=== PATIENT | female | born 1935 | race Caucasian/White ===

== ENCOUNTER → 2018-03-25 | Outpatient (CLI) | payer OTHER ==
[~2018-03-25] MED LIST: ACID REDUCER; ALBU90OI61 INH; ANORO ELLIPTA1 EACH INH; Amlodipine Bes2.5 MG PO; Macrobid 100 M100 MG PO; Omeprazole20 M1 PO; Pravastatin Sod40 MG PO; ZESTORETIC 20-121 EA PO
[2018-03-25 17:31] LABS: Bilirubin, Urine Neg (Neg); Blood, Urine 3+ (Neg); Glucose Qualitative, Urine Neg (Neg); Ketones, Urine Neg (Neg); Leukocyte Esterase, Urine 2+ (Neg); Nitrite, Urine Neg (Neg); Protein, Urine 1+ (Neg); Urobilinogen, Urine NORM (Normal)
[2018-03-25 17:38] LABS: Appearance, Urine Hazy (Clear); Color, Urine Yellow (P-Yellow)
[2018-03-25 17:40] LABS: Bacteria Few /hpf; Red Blood Cells, Urine 0-2 /hpf (0-2); Squamous Epithelial Cells Few /hpf (Few)
== END ==
LOC: LAB SHORT 17:11 → LAB 17:11
PROVIDERS: Internal Medicine Hematology & Oncology
DX: N39.0 Urinary tract infection, site not specified (principal)
CPT/HCPCS: 81001; 87077; 87086; 87186

== ENCOUNTER 2018-03-30 10:37 | Emergency (ER) | payer OTHER ==
[~2018-03-30] VITALS: Ht 162.6 cm; Wt 69.8 kg
[~2018-03-30 10:37] MED LIST changes: -Macrobid 100 M100 MG PO
[2018-03-30 11:18] LABS: BASOPHILS ABSOLUTE AUTO 0.04 K/mm3 (0.00-0.23); BASOPHILS PERCENT AUTO 1 % (0-2); EOSINOPHILS ABSOLUTE AUTO 0.06 K/mm3 (0.00-0.68); EOSINOPHILS PERCENT AUTO 1 % (0-6); Hematocrit 45.8 % (33.0-51.0); Hemoglobin 15.3 g/dL (11.5-16.0); IMMATURE GRAN ABSOLUTE AUTO 0.02 K/mm3 (0.00-0.10); IMMATURE GRAN PERCENT AUTO 0 % (0-1); LYMPHOCYTES ABSOLUTE AUTO 1.37 K/mm3 (0.84-5.20); LYMPHOCYTES PERCENT AUTO 28 % (21-46); MONOCYTES ABSOLUTE AUTO 0.52 K/mm3 (0.16-1.47); MONOCYTES PERCENT AUTO 11 % (4-13); Mean Corpuscular HGB 31.7 pg (26.0-34.0); Mean Corpuscular HGB Conc 33.4 g/dL (31.5-36.5); Mean Corpuscular Volume 95 fL (80-100); Mean Platelet Volume 10.5 fL (9.1-12.4); NEUTROPHILS ABSOLUTE AUTO 2.93 K/mm3 (1.96-9.15); NEUTROPHILS PERCENT AUTO 59 % (41-73); Platelet Count 286 K/mm3 (150-400); RDW Coefficient Variation 11.6 % (11.7-14.2); RDW Standard Deviation 40.7 fL (35.1-46.3); Red Blood Cell Count 4.83 M/mm3 (3.80-5.20); White Blood Cell Count 4.94 K/mm3 (4.00-11.30)
[2018-03-30 11:46] LABS: Alanine Aminotransfer (ALT/SGP 94 U/L (12-78); Albumin, Blood 3.5 g/dL (3.4-5.0); Albumin/Globulin Ratio 0.7 (0.8-1.8); Alk Phos 90 U/L (50-136); Anion Gap 5 mmol/L (6-16); Aspartate Aminotrans (AST/SGOT 56 U/L (12-37); Bilirubin, Total 0.3 mg/dL (0.1-1.0); Blood Urea Nitrogen 13 mg/dL (8-24); Bun/Creatinine Ratio 18.5 (12.0-20.0); CO2, Blood 33 mmol/L (21-32); Calcium, Blood 8.9 mg/dL (8.5-10.1); Chloride, Blood 97 mmol/L (98-108); Globulin, Blood 4.9 g/dL (2.2-4.0); Glomerular Filtration Rate >60 (60-); Glucose, Blood 116 mg/dL (70-99); Potassium, Blood 3.9 mmol/L (3.5-5.5); Sodium, Blood 135 mmol/L (136-145); Total Protein, Blood 8.4 g/dL (6.4-8.2); Troponin I <0.015 ng/mL (0.000-0.040)
[2018-03-30 12:39] LABS: Bilirubin, Urine Neg (Neg); Blood, Urine 5+ (Neg); Glucose Qualitative, Urine Neg (Neg); Ketones, Urine 1+ (Neg); Leukocyte Esterase, Urine 1+ (Neg); Nitrite, Urine Neg (Neg); Protein, Urine 3+ (Neg); Specific Gravity, Urine 1.015 (1.003-1.022); Urobilinogen, Urine NORM (Normal)
[2018-03-30 12:48] LABS: Appearance, Urine Hazy (Clear); Color, Urine Yellow (P-Yellow)
[2018-03-30 12:49] LABS: Bacteria Rare /hpf; Mucus Mod (0-Heavy); Squamous Epithelial Cells Mod /hpf (Few); White Blood Cells, Urine 0-2 /hpf (0-5)
[2018-03-30] MEDS ORDERED: Macrobid 100 M100 MG PO (13:19)
== END 2018-03-30 13:39 | disposition home or self-care (01) ==
LOC: ER 10:37
PROVIDERS: Emergency Medicine; Physician Assistant
DX: J44.0 Chronic obstructive pulmonary disease with (acute) lower respiratory infection (principal); J20.8 Acute bronchitis due to other specified organisms; N39.0 Urinary tract infection, site not specified; I10 Essential (primary) hypertension; Z79.899 Other long term (current) drug therapy; Z87.891 Personal history of nicotine dependence
CPT/HCPCS: 36415; 71046; 80053; 81001; 84484; 85025; 87086; 93005; 93010; 94640; 96361; 96374; 99284-25; J2930; J7030

== ENCOUNTER 2019-02-25 07:23 | Day surgery (SDC) | payer OTHER, SELFPAY ==
[~2019-02-25] VITALS: Ht 162.6 cm; Wt 68.8 kg
[~2019-02-25 07:23] MED LIST changes: +CHOL10002 PO; +MULTI VITAMIN1 EACH PO; +Macrobid 100 M100 MG PO; +PRAV20 PO; +STIOLTO RESPIMAT4 GM INH; +TUMS500 MG PO
[2019-02-25] MEDS ORDERED: Zantac150 MG PO (08:10)
--- NOTE | 2019-02-25 09:45 | NUR ---
02/25/19 0945 Debbie Huang AV CECUM
== END 2019-02-25 10:16 | disposition home or self-care (01) ==
LOC: ORSCSDS 07:23
PROVIDERS: Internal Medicine Gastroenterology
PROC: 0D5H8ZZ Destruction of Cecum, Via Natural or Artificial Opening Endoscopic (ICD-10-PCS; principal; 2019-02-25 09:00)
PROC: 0DB58ZX Excision of Esophagus, Via Natural or Artificial Opening Endoscopic, Diagnostic (ICD-10-PCS; principal; 2019-02-25 09:00)
PROC: 0DB68ZX Excision of Stomach, Via Natural or Artificial Opening Endoscopic, Diagnostic (ICD-10-PCS; principal; 2019-02-25 09:00)
PROC: 0DBK8ZX Excision of Ascending Colon, Via Natural or Artificial Opening Endoscopic, Diagnostic (ICD-10-PCS; principal; 2019-02-25 09:00)
DX: R19.5 Other fecal abnormalities (principal); D12.2 Benign neoplasm of ascending colon; K55.20 Angiodysplasia of colon without hemorrhage; K57.30 Diverticulosis of large intestine without perforation or abscess without bleeding; Z86.010 Personal history of colon polyps; K22.70 Barrett's esophagus without dysplasia; K29.70 Gastritis, unspecified, without bleeding; K44.9 Diaphragmatic hernia without obstruction or gangrene; J44.9 Chronic obstructive pulmonary disease, unspecified; Z99.81 Dependence on supplemental oxygen; Z79.899 Other long term (current) drug therapy
CPT/HCPCS: 87081; 88305; J0330; J0461; J2250; J2405; J2704

== ENCOUNTER 2019-03-04 08:40 | Observation (INO) | payer OTHER ==
[~2019-03-04] VITALS: Ht 162.6 cm; Wt 68.5 kg
[~2019-03-04 08:40] MED LIST changes: +Zantac150 MG PO
[2019-03-04 09:34] LABS: BASOPHILS ABSOLUTE AUTO 0.06 K/mm3 (0.00-0.23); BASOPHILS PERCENT AUTO 1 % (0-2); EOSINOPHILS ABSOLUTE AUTO 0.07 K/mm3 (0.00-0.68); EOSINOPHILS PERCENT AUTO 1 % (0-6); Hematocrit 39.1 % (33.0-51.0); Hemoglobin 13.1 g/dL (11.5-16.0); IMMATURE GRAN ABSOLUTE AUTO 0.02 K/mm3 (0.00-0.10); IMMATURE GRAN PERCENT AUTO 0 % (0-1); LYMPHOCYTES ABSOLUTE AUTO 1.99 K/mm3 (0.84-5.20); LYMPHOCYTES PERCENT AUTO 24 % (21-46); MONOCYTES ABSOLUTE AUTO 0.66 K/mm3 (0.16-1.47); MONOCYTES PERCENT AUTO 8 % (4-13); Mean Corpuscular HGB Conc 33.5 g/dL (31.5-36.5); Mean Corpuscular Volume 95 fL (80-100); Mean Platelet Volume 10.5 fL (9.1-12.4); NEUTROPHILS ABSOLUTE AUTO 5.67 K/mm3 (1.96-9.15); NEUTROPHILS PERCENT AUTO 67 % (41-73); Platelet Count 271 K/mm3 (150-400); RDW Coefficient Variation 12.1 % (11.7-14.2); RDW Standard Deviation 42.7 fL (35.1-46.3); White Blood Cell Count 8.47 K/mm3 (4.00-11.30)
[2019-03-04 09:50] LABS: Alanine Aminotransfer (ALT/SGP 26 U/L (12-78); Albumin, Blood 3.7 g/dL (3.4-5.0); Alk Phos 57 U/L (50-136); Anion Gap 4 mmol/L (6-16); Aspartate Aminotrans (AST/SGOT 23 U/L (12-37); Bilirubin, Total 0.3 mg/dL (0.1-1.0); Blood Urea Nitrogen 17 mg/dL (8-24); Bun/Creatinine Ratio 27.4 (12.0-20.0); CO2, Blood 33 mmol/L (21-32); Calcium, Blood 9.1 mg/dL (8.5-10.1); Chloride, Blood 101 mmol/L (98-108); Creatinine, Blood 0.62 mg/dL (0.40-1.00); Globulin, Blood 3.7 g/dL (2.2-4.0); Glomerular Filtration Rate >60 (60-); Glucose, Blood 99 mg/dL (70-99); Sodium, Blood 138 mmol/L (136-145); Total Protein, Blood 7.4 g/dL (6.4-8.2)
[2019-03-04] MEDS ORDERED: VITAMIN E400 UNI1 PO (11:45)
[2019-03-04] MEDS ORDERED: Aspirin EC81 MG PO (11:45)
[2019-03-04] MEDS ORDERED: ASCO500 PO (11:46)
[2019-03-04] MEDS ORDERED: Vitamin B Comple1 EA PO (11:46)
[2019-03-04] MEDS ORDERED: THERA1 EACH PO (11:46)
[2019-03-04 15:16] LABS: Hematocrit 35.2 % (33.0-51.0); Hemoglobin 11.8 g/dL (11.5-16.0)
[2019-03-04 18:36] LABS: Hematocrit 37.1 % (33.0-51.0); Hemoglobin 12.2 g/dL (11.5-16.0)
[2019-03-05 05:09] LABS: Hemoglobin 12.6 g/dL (11.5-16.0); Mean Corpuscular HGB 30.7 pg (26.0-34.0); Mean Corpuscular HGB Conc 33.2 g/dL (31.5-36.5); Mean Corpuscular Volume 93 fL (80-100); Mean Platelet Volume 10.1 fL (9.1-12.4); Platelet Count 242 K/mm3 (150-400); RDW Coefficient Variation 12.1 % (11.7-14.2); RDW Standard Deviation 41.4 fL (35.1-46.3); White Blood Cell Count 5.06 K/mm3 (4.00-11.30)
== END 2019-03-05 11:51 | disposition home or self-care (01) ==
LOC: ER 08:40 → MEDS 08:41 → ENPENDDIS 03-05 10:59 → MEDS 03-05 11:51
PROVIDERS: Emergency Medicine; Internal Medicine Gastroenterology; ADMIT Internal Medicine
DX: K92.1 Melena (principal); I10 Essential (primary) hypertension; J44.9 Chronic obstructive pulmonary disease, unspecified; I73.9 Peripheral vascular disease, unspecified; Z86.010 Personal history of colon polyps; Z87.891 Personal history of nicotine dependence; Z98.890 Other specified postprocedural states; Z91.048 Other nonmedicinal substance allergy status; Z79.899 Other long term (current) drug therapy; Z79.51 Long term (current) use of inhaled steroids
CPT/HCPCS: 36415; 80053; 85014; 85018; 85025; 85027; 86850; 86900; 86901; 99284; G0378

== ENCOUNTER 2019-03-05 15:10 | Observation (INO) | payer OTHER ==
[~2019-03-05] VITALS: Ht 162.6 cm; Wt 56.8 kg
[~2019-03-05 15:10] MED LIST changes: +ASCO500 PO; +Aspirin EC81 MG PO; +THERA1 EACH PO; +VITAMIN E400 UNI1 PO; +Vitamin B Comple1 EA PO
[2019-03-05 15:49] LABS: BASOPHILS ABSOLUTE AUTO 0.04 K/mm3 (0.00-0.23); BASOPHILS PERCENT AUTO 1 % (0-2); EOSINOPHILS PERCENT AUTO 1 % (0-6); Hematocrit 34.3 % (33.0-51.0); Hemoglobin 11.5 g/dL (11.5-16.0); IMMATURE GRAN ABSOLUTE AUTO 0.02 K/mm3 (0.00-0.10); IMMATURE GRAN PERCENT AUTO 0 % (0-1); LYMPHOCYTES ABSOLUTE AUTO 2.48 K/mm3 (0.84-5.20); LYMPHOCYTES PERCENT AUTO 33 % (21-46); MONOCYTES ABSOLUTE AUTO 0.68 K/mm3 (0.16-1.47); MONOCYTES PERCENT AUTO 9 % (4-13); Mean Corpuscular HGB 31.5 pg (26.0-34.0); Mean Corpuscular HGB Conc 33.5 g/dL (31.5-36.5); Mean Corpuscular Volume 94 fL (80-100); Mean Platelet Volume 10.6 fL (9.1-12.4); NEUTROPHILS ABSOLUTE AUTO 4.27 K/mm3 (1.96-9.15); NEUTROPHILS PERCENT AUTO 56 % (41-73); Platelet Count 260 K/mm3 (150-400); RDW Standard Deviation 41.6 fL (35.1-46.3); Red Blood Cell Count 3.65 M/mm3 (3.80-5.20); White Blood Cell Count 7.59 K/mm3 (4.00-11.30)
[2019-03-05 16:09] LABS: Alanine Aminotransfer (ALT/SGP 24 U/L (12-78); Albumin, Blood 3.7 g/dL (3.4-5.0); Alk Phos 56 U/L (50-136); Anion Gap 4 mmol/L (6-16); Aspartate Aminotrans (AST/SGOT 18 U/L (12-37); Bilirubin, Total 0.3 mg/dL (0.1-1.0); Blood Urea Nitrogen 14 mg/dL (8-24); CO2, Blood 35 mmol/L (21-32); Calcium, Blood 8.5 mg/dL (8.5-10.1); Chloride, Blood 97 mmol/L (98-108); Globulin, Blood 3.6 g/dL (2.2-4.0); Glomerular Filtration Rate >60 (60-); Glucose, Blood 94 mg/dL (70-99); Potassium, Blood 3.8 mmol/L (3.5-5.5); Sodium, Blood 136 mmol/L (136-145); Total Protein, Blood 7.3 g/dL (6.4-8.2)
[2019-03-05 20:22] LABS: Hematocrit 36.8 % (33.0-51.0)
--- NOTE | 2019-03-05 23:00 | NUR ---
FINISHED ERIC, VERY COOPERATIVE
[2019-03-06 05:09] LABS: BASOPHILS ABSOLUTE AUTO 0.03 K/mm3 (0.00-0.23); BASOPHILS PERCENT AUTO 1 % (0-2); EOSINOPHILS ABSOLUTE AUTO 0.08 K/mm3 (0.00-0.68); EOSINOPHILS PERCENT AUTO 1 % (0-6); IMMATURE GRAN ABSOLUTE AUTO 0.02 K/mm3 (0.00-0.10); IMMATURE GRAN PERCENT AUTO 0 % (0-1); LYMPHOCYTES ABSOLUTE AUTO 2.12 K/mm3 (0.84-5.20); LYMPHOCYTES PERCENT AUTO 38 % (21-46); MONOCYTES ABSOLUTE AUTO 0.61 K/mm3 (0.16-1.47); MONOCYTES PERCENT AUTO 11 % (4-13); Mean Corpuscular HGB 31.2 pg (26.0-34.0); Mean Corpuscular HGB Conc 33.3 g/dL (31.5-36.5); Mean Corpuscular Volume 94 fL (80-100); Mean Platelet Volume 10.2 fL (9.1-12.4); NEUTROPHILS PERCENT AUTO 49 % (41-73); Platelet Count 246 K/mm3 (150-400); RDW Coefficient Variation 11.9 % (11.7-14.2); RDW Standard Deviation 40.3 fL (35.1-46.3); Red Blood Cell Count 3.53 M/mm3 (3.80-5.20); White Blood Cell Count 5.66 K/mm3 (4.00-11.30)
[2019-03-06 05:33] LABS: Anion Gap 2 mmol/L (6-16); Blood Urea Nitrogen 9 mg/dL (8-24); Bun/Creatinine Ratio 13.2 (12.0-20.0); CO2, Blood 36 mmol/L (21-32); Calcium, Blood 8.4 mg/dL (8.5-10.1); Chloride, Blood 101 mmol/L (98-108); Creatinine, Blood 0.68 mg/dL (0.40-1.00); Glomerular Filtration Rate >60 (60-); Glucose, Blood 92 mg/dL (70-99); Potassium, Blood 3.4 mmol/L (3.5-5.5); Sodium, Blood 139 mmol/L (136-145)
[2019-03-06 12:46] LABS: Hematocrit 35.9 % (33.0-51.0); Hemoglobin 12.1 g/dL (11.5-16.0)
--- NOTE | 2019-03-06 15:24 | NUR ---
Patient states colon prep results clear. History, Chart, Medications and Allergies reviewed before start of procedure. Lungs clear T/O to Auscultation. Patient confirms NPO status and agrees with scheduled surgery. Pre-Op teaching done. Pt verbalizes understanding.
--- NOTE | 2019-03-06 16:43 | NUR ---
03/06/19 1642 eJff Luther PATIENT DETERMINED TO BE ASA APPROPRIATE FOR PROPOFOL SEDATION PRIOR TO START OF PROCEDURE BY 3-LEAD EKG REVIEWED WITH PHYSICIAN PRIOR TO START OF PROCEDURE.PATIENT CONFIRMS NPO STATUS AND AGREES WITH SCHEDULED PROCEDURE.Patient to ENDO 1History, Chart, Medications and Allergies reviewed before start of procedure.MONITOR INTACT WITH CONTINUOUS PULSE OXIMETRY AND INTERMITTENT BP.O2 VIA N/C INTACT THROUGHOUT SEDATION/PROCEDURE. TALKED WITH DOCTOR. RN COMFORTABLE WITH SEDATING PATIENT WITH PROPOFOL PATIENT MEETS CRITERIA FOR RN SEDATION. DOCTOR IS FINE WITH NURSE SEDTION.
== END 2019-03-06 18:45 | disposition home or self-care (01) ==
LOC: ER 15:10 → MEDS 15:11
PROVIDERS: Internal Medicine Gastroenterology; Physician Assistant; ADMIT Family Medicine
PROC: 0DJD8ZZ Inspection of Lower Intestinal Tract, Via Natural or Artificial Opening Endoscopic (ICD-10-PCS; principal; 2019-03-06 15:30)
DX: K92.1 Melena (principal); K57.32 Diverticulitis of large intestine without perforation or abscess without bleeding; K62.1 Rectal polyp; D50.0 Iron deficiency anemia secondary to blood loss (chronic); E87.6 Hypokalemia; J44.9 Chronic obstructive pulmonary disease, unspecified; I10 Essential (primary) hypertension; I73.9 Peripheral vascular disease, unspecified; E78.5 Hyperlipidemia, unspecified; Z95.828 Presence of other vascular implants and grafts; Z79.899 Other long term (current) drug therapy; Z79.82 Long term (current) use of aspirin; Z98.890 Other specified postprocedural states; Z87.891 Personal history of nicotine dependence
CPT/HCPCS: 36415; 80048; 80053; 85014; 85018; 85025; 86850; 86900; 86901; 93005; 93010; 94640; 94760; 99285-25; G0378; J2704; J7120

== ENCOUNTER → 2019-03-27 | Outpatient (CLI) | payer OTHER ==
[2019-03-27 15:29] LABS: Bilirubin, Urine Neg (Neg); Blood, Urine 5+ (Neg); Glucose Qualitative, Urine Neg (Neg); Ketones, Urine Neg (Neg); Leukocyte Esterase, Urine 3+ (Neg); Nitrite, Urine Neg (Neg); Protein, Urine 3+ (Neg); Specific Gravity, Urine 1.015 (1.003-1.022); Urobilinogen, Urine NORM (Normal)
[2019-03-27 15:43] LABS: Appearance, Urine Cloudy (Clear); Color, Urine Yellow (P-Yellow)
[2019-03-27 15:45] LABS: Bacteria Many /hpf; Red Blood Cells, Urine 50-100 /hpf (0-2); Squamous Epithelial Cells Rare /hpf (Few); White Blood Cells, Urine TNTC /hpf (0-5)
== END | disposition home or self-care (01) ==
LOC: LAB 15:19 → LAB SHORT 15:19
PROVIDERS: Internal Medicine Hematology & Oncology
DX: R53.81 Other malaise (principal); R53.83 Other fatigue
CPT/HCPCS: 81001; 87077; 87086; 87186

== ENCOUNTER → 2019-06-09 | Outpatient (CLI) | payer OTHER ==
[2019-06-09 14:46] LABS: Stool Occult Bld Immuno 1 Negative (NEGATIVE); Stool Occult Bld Immuno 2 Negative (NEGATIVE)
== END ==
LOC: LAB SHORT 12:14 → LAB 12:14 → LAB FUT 02-26 16:05 → EDSTATUS 02-26 16:05
PROVIDERS: Internal Medicine Gastroenterology
DX: R19.5 Other fecal abnormalities (principal)
CPT/HCPCS: 82274

== ENCOUNTER → 2020-01-08 | Outpatient (CLI) | payer OTHER ==
[2020-01-08 11:12] LABS: Source, Urine Clean Catch
[2020-01-08 12:12] LABS: Bilirubin, Urine Neg (Neg); Blood, Urine 5+ (Neg); Glucose Qualitative, Urine Neg (Neg); Ketones, Urine Neg (Neg); Leukocyte Esterase, Urine 3+ (Neg); Nitrite, Urine Pos (Neg); Protein, Urine 3+ (Neg); Urobilinogen, Urine NORM (Normal)
[2020-01-08 12:35] LABS: Appearance, Urine Turbid (Clear); Color, Urine Yellow (P-Yellow)
[2020-01-08 12:36] LABS: Red Blood Cells, Urine TNTC /hpf (0-2); White Blood Cells, Urine TNTC /hpf (0-5)
[2020-01-08 12:37] LABS: Bacteria Many /hpf; Renal Epithelial Few /hpf (0-Rare); Squamous Epithelial Cells Few /hpf (Few)
[2020-01-11 10:16] LABS: Adenovirus F 40/41 Not Detected (NOT DETECT); Astrovirus Not Detected (NOT DETECT); Campylobacter Sp Not Detected (NOT DETECT); Cryptosporidium Not Detected (NOT DETECT); Cyclospora Cayetanensis Not Detected (NOT DETECT); E. Coli O157 Not Detected (NOT DETECT); Entamoeba Histolytica Not Detected (NOT DETECT); Enteroaggregative E. coli-EAEC Not Detected (NOT DETECT); Enteropathogenic E. coli-EPEC Not Detected (NOT DETECT); Enterotoxigenic E. coli-ETEC Not Detected (NOT DETECT); Giardia Lamblia Not Detected (NOT DETECT); Norovirus GI/GII Not Detected (NOT DETECT); Plesiomonas Shigelloides Not Detected (NOT DETECT); Rotavirus A Not Detected (NOT DETECT); Salmonella Sp Not Detected (NOT DETECT); Sapovirus Not Detected (NOT DETECT); Shiga Toxin-prod E. coli-STEC Not Detected (NOT DETECT); Shigella/Enteroin E. coli-EIEC Not Detected (NOT DETECT); Vibrio Cholerae Not Detected (NOT DETECT); Vibrio Sp Not Detected (NOT DETECT); Yersinia Enterocolitica Not Detected (NOT DETECT)
== END ==
LOC: LAB SHORT 11:10 → LAB 11:10
PROVIDERS: Internal Medicine Hematology & Oncology
DX: N39.0 Urinary tract infection, site not specified (principal); R19.7 Diarrhea, unspecified; K57.30 Diverticulosis of large intestine without perforation or abscess without bleeding; R19.5 Other fecal abnormalities
CPT/HCPCS: 0097U; 81001; 87077; 87086; 87186

== ENCOUNTER → 2020-08-26 | Outpatient (CLI) | payer OTHER | END | disposition home or self-care (01) | LOC: LAB SHORT 08:30 → LAB 08:30 | DX: R30.0 Dysuria (principal) | CPT/HCPCS: 87077; 87086; 87186 ==

== ENCOUNTER → 2021-02-23 | Outpatient (CLI) | payer OTHER | LOC: LAB SHORT 10:15 | DX: R30.0 Dysuria (principal) | CPT/HCPCS: 87086 ==

== ENCOUNTER → 2021-07-18 | Outpatient (CLI) | payer OTHER | LOC: LAB SHORT 13:03 | DX: N39.0 Urinary tract infection, site not specified (principal) | CPT/HCPCS: 87086 ==

== ENCOUNTER → 2021-08-10 | Outpatient (CLI) | payer OTHER | END | disposition home or self-care (01) | LOC: LAB SHORT 17:07 → LAB FUT 08-10 14:40 | DX: R35.0 Frequency of micturition (principal) | CPT/HCPCS: 87086 ==

== ENCOUNTER → 2022-03-30 | Outpatient (CLI) | payer OTHER ==
[~2022-03-30] MED LIST changes: +CLOPIDOGREL300 M1
== END | disposition home or self-care (01) ==
LOC: LAB SHORT 17:36 → LAB 17:36
DX: N02.0 Recurrent and persistent hematuria with minor glomerular abnormality (principal); N39.0 Urinary tract infection, site not specified
CPT/HCPCS: 87077; 87086; 87186

== ENCOUNTER 2022-09-06 00:09 | Inpatient (IN) | payer OTHER ==
[~2022-09-06] VITALS: Ht 162.6 cm; Wt 67.1 kg
[2022-09-06] MEDS ORDERED: LOSARTAN-HCTZ1 EAC6 PO (00:33)
[2022-09-06] MEDS ORDERED: Ventolin5 MG/1 ML INH (00:33)
[2022-09-06] MEDS ORDERED: ASPI81CH PO (00:34)
[2022-09-06] MEDS ORDERED: PRED20 PO (00:34)
[2022-09-06 00:50] LABS: BASOPHILS ABSOLUTE AUTO 0.04 K/mm3 (0.00-0.23); BASOPHILS PERCENT AUTO 1 % (0-2); EOSINOPHILS ABSOLUTE AUTO 0.14 K/mm3 (0.00-0.68); EOSINOPHILS PERCENT AUTO 2 % (0-6); Hematocrit 40.6 % (33.0-51.0); Hemoglobin 13.3 g/dL (11.5-16.0); IMMATURE GRAN ABSOLUTE AUTO 0.03 K/mm3 (0.00-0.10); IMMATURE GRAN PERCENT AUTO 0 % (0-1); LYMPHOCYTES PERCENT AUTO 27 % (21-46); MONOCYTES ABSOLUTE AUTO 0.69 K/mm3 (0.16-1.47); MONOCYTES PERCENT AUTO 8 % (4-13); Mean Corpuscular HGB 30.9 pg (26.0-34.0); Mean Corpuscular HGB Conc 32.8 g/dL (31.5-36.5); Mean Corpuscular Volume 94 fL (80-100); Mean Platelet Volume 11.1 fL (9.1-12.4); NEUTROPHILS ABSOLUTE AUTO 5.51 K/mm3 (1.96-9.15); NEUTROPHILS PERCENT AUTO 63 % (41-73); Platelet Count 179 K/mm3 (150-400); RDW Coefficient Variation 12.6 % (11.7-14.2); White Blood Cell Count 8.81 K/mm3 (4.00-11.30)
[2022-09-06 01:02] LABS: Albumin, Blood 3.6 g/dL (3.4-5.0); Bilirubin, Total 0.3 mg/dL (0.1-1.0); Bun/Creatinine Ratio 15.7 (12.0-20.0); Calcium, Blood 9.1 mg/dL (8.5-10.1); Creatinine, Blood 0.64 mg/dL (0.40-1.00); Globulin, Blood 3.5 g/dL (2.2-4.0); Potassium, Blood 3.5 mmol/L (3.5-5.5); Total Protein, Blood 7.1 g/dL (6.4-8.2)
[2022-09-06 02:47] LABS: Influenza A, PCR NEGATIVE (NEGATIVE); Influenza B, PCR NEGATIVE (NEGATIVE); Resp Syncytial Virus, PCR NEGATIVE (NEGATIVE); SARS-Cov-2 (COVID-19) PCR, MMC NEGATIVE (NEGATIVE)
[2022-09-06 03:31] LABS: Anti-Xa UFH, PHA Monitoring <0.10 IU/mL; International Normalized Ratio 1.04; Prothrombin Time Results 10.9 Sec (9.7-11.5)
[2022-09-06 03:32] LABS: CHOL/HDL RATIO 1.9; Cholesterol 115 mg/dL (50-200); HDL Cholesterol 60 mg/dL (>39); LDL/HDL RATIO 0.7; Low Density Lipoprotein Chol 42 mg/dL (0-110); Triglycerides 67 mg/dL (30-160); Very Low Density Lipoprot Chol 13 mg/dL (6-32)
--- NOTE | 2022-09-06 05:34 | NUR ---
ARRIVAL TO PCU6/SHIFT SUMMARY PT ARRIVED TO PCU6 AT APPROXIMATELY 0330. PT STOOD AND TRANSFERED FROM [facility] TO HOSPITAL BED WITH SBA. PT A&Ox4, COMMUNICATES NEEDS APPROPRIATELY, ORIENTED PT TO ROOM/UNIT AND CALL LIGHT. INSTUCTED PT TO CALL FOR ASSISTANCE BEFORE GETTING UP. BP ELEVATED WITH SBP 150's, AFIB RVR 110-140's UP TO 160's WITH ACTIVITY. PT DENIES CP/PRESSURE/PALPITATIONS. SPOKE WITH DR. MALDONADO, ORDERS GIVEN TO ADMINISTER ANOTHER 15mg CARDIZEM IV PUSH. AFTER ADMINISTERING THE 15mg CARDIZEM IV PUSH, SBP NOW 120's, AFIB 70-90's. D/T PT's BP AND HR RESPONDING TO CARDIZEM, DR. MALDONADO GAVE INSTRUCTIONS TO HOLD 0500 DOSE OF COZAAR. PT ARRIVED ON BASELINE 2L OF O2 VIA NC, SpO2 98-100%. TITRATED PT TO 1L O2 VIA NC, SpO2> 92%. PT REPORTS MILD SOB AT REST, MOD SOB WITH ACTIVITY, PT's LUNG SOUNDS ARE TIGHT THROUGHOUT, REQUESTED BREATHING TREATMENT FROM RT. PT HAS BASELINE TREMOR. EQUAL MOVEMENT OF ALL EXTREMITIES. HEPARIN gtt AT 15. PT SBA TO BATHROOM, CONTINENT OF URINE, NO BM THIS SHIFT. PT RESTING COMFORTABLY. ON CONTINUOUS CARDIAC AND SpO2 MONITORING. WILL REPORT TO ONCOMING RN.
[2022-09-06 14:47] LABS: Potassium, Blood 3.4 mmol/L (3.5-5.5)
--- NOTE | 2022-09-06 17:14 | NUR ---
SHIFT SUMMARY PT A/OX4 AND COOPERATIVE OF CARE. PT HR REMAINED A-FIB AT 90-110'S WHILE AT REST. HR TACHS UP TO 130-140'S WITH EXERTION, HR RETURNS TO 90-110'S ONCE AT REST IN BED FAIRLY QUICKLY. PT REPORTS SOB WHEN UP IN ROOM, SATS STABLE IN THE 90'S. OTHER VSS THROUGHOUT SHIFT. PT REMAINED ON 1-2L NC THROUGHOUT SHIFT. NO REPORT OF CHEST PAIN/PRESSURE THROUGHOUT SHIFT. PT CALLING APPROPIATELY TO HAVE STAFF ASSIST WITH LINES AND CORDS WHEN AMBULATING TO THE BATHROOM. FAMILY MEMBER AT BEDSIDE AND UPDATED. PT ANXIOUS OF HR CONSTANTLY ASKING WHAT HER HR IS IF MONITOR ALARMS. BED IN LOWEST POSITION. CALL LIGHT WITHIN REACH.
--- NOTE | 2022-09-06 19:27 | NUR ---
NOTIFIED PHYSICIAN NOTIFIED PHYSICIAN OF HR 130-160's. INSTRUCTIONS GIVEN TO ADMINISTER 2100 METOPROLOL NOW.
--- NOTE | 2022-09-07 06:02 | NUR ---
SHIFT SUMMARY SEE PREVIOUS NOTE. PT A&Ox4, CALLS AND COMMUNICATES NEEDS APPROPRIATELY. BP STABLE, AFIB 90-110's UP TO 130's WITH ACTIVITY. PT DENIES CP/PRESSURE/PALPITATIONS. SpO2> 92% 1L AT REST, 2L WITH ACTIVIY. AT BASELINE PT WEARS 2L O2 VIA NC CONTINUOUSLY. PT REPORTS MILD SOB AT REST, MOD SOB WITH ACTIVITY. HEPARIN gtt @ 13. PT SBA TO BATHROOM, CONTINENT OF URINE, NO BM THIS SHIFT. ON CONTINUOUS CARDIAC AND SpO2 MONITORING. WILL REPORT TO ONCOMING RN.
--- NOTE | 2022-09-07 07:24 | NUR ---
Up to BSC to void; heart rate up to 121-147 with some mild ShOB and spo2 85-89% while on 2 l/min Oxygen during the activity. Minimal assist back to bed.
--- NOTE | 2022-09-07 07:32 | NUR ---
Pt back to bed, states she feels better than she did when she first got up. Recovery of spo2 to 94%, still on 2 l/min and heart rate (atrial fibrillation, as before) 109-120 bpm at this time. Pt appears calm, not distressed, lying in bed with HOB elevated 45 degrees.
[2022-09-07 08:15] LABS: BASOPHILS ABSOLUTE AUTO 0.04 K/mm3 (0.00-0.23); BASOPHILS PERCENT AUTO 1 % (0-2); EOSINOPHILS ABSOLUTE AUTO 0.16 K/mm3 (0.00-0.68); EOSINOPHILS PERCENT AUTO 2 % (0-6); Hematocrit 40.4 % (33.0-51.0); IMMATURE GRAN ABSOLUTE AUTO 0.02 K/mm3 (0.00-0.10); IMMATURE GRAN PERCENT AUTO 0 % (0-1); LYMPHOCYTES ABSOLUTE AUTO 1.91 K/mm3 (0.84-5.20); LYMPHOCYTES PERCENT AUTO 29 % (21-46); MONOCYTES ABSOLUTE AUTO 0.49 K/mm3 (0.16-1.47); MONOCYTES PERCENT AUTO 7 % (4-13); Mean Corpuscular HGB 30.8 pg (26.0-34.0); Mean Corpuscular HGB Conc 32.2 g/dL (31.5-36.5); Mean Corpuscular Volume 96 fL (80-100); Mean Platelet Volume 10.9 fL (9.1-12.4); NEUTROPHILS ABSOLUTE AUTO 4.09 K/mm3 (1.96-9.15); NEUTROPHILS PERCENT AUTO 61 % (41-73); Platelet Count 174 K/mm3 (150-400); RDW Coefficient Variation 12.9 % (11.7-14.2); RDW Standard Deviation 45.1 fL (35.1-46.3); Red Blood Cell Count 4.22 M/mm3 (3.80-5.20); White Blood Cell Count 6.71 K/mm3 (4.00-11.30)
[2022-09-07 08:31] LABS: Albumin, Blood 3.2 g/dL (3.4-5.0); Anion Gap 4 mmol/L (6-16); Blood Urea Nitrogen 9 mg/dL (8-24); Bun/Creatinine Ratio 14.6 (12.0-20.0); CO2, Blood 36 mmol/L (21-32); Calcium, Blood 8.8 mg/dL (8.5-10.1); Chloride, Blood 101 mmol/L (98-108); Creatinine, Blood 0.62 mg/dL (0.40-1.00); Glomerular Filtration Rate 87 (60-); Glucose, Blood 100 mg/dL (70-99); Phosphorus, Blood 3.3 mg/dL (2.5-4.9); Potassium, Blood 3.6 mmol/L (3.5-5.5); Sodium, Blood 141 mmol/L (136-145)
--- NOTE | 2022-09-07 09:12 | NUR ---
Order noted from pharmacy to continue heparin gtt at current rate. Pt given scheduled morning oral medications.
--- NOTE | 2022-09-07 11:41 | NUR ---
Pt is lying in bed, slight dyspnea noted. STates her breathing is better, but still not "where it needs to be". Called maintainence to adress TV malfunction. Nurse call light is working properly.
--- NOTE | 2022-09-07 14:39 | NUR ---
Continuing heparin gtt at current rate per pharmacy.
--- NOTE | 2022-09-07 15:38 | NUR ---
Pt sitting up in bed,
--- NOTE | 2022-09-07 18:22 | NUR ---
Pt has had no complaints of pain/discomfort today while at rest. She did have dyspnea with activity of getting up to the bedside commode, at the same time that her heart rate was increased to 130-140s. This resolved with rest after the activity.
--- NOTE | 2022-09-08 03:10 | NUR ---
HEART RATE INCREASED TO 150s WHEN GETTING UP TO BEDSIDE COMMODE.
--- NOTE | 2022-09-08 05:26 | NUR ---
AFIB/FLUTTER WITH RATES MOSTLY IN THE 90s - 110s AT REST, INCREASING TO THE 130s-150s WITH ACTIVITY. PATIENT DENIES PALPITATIONS OR FEELING HEART RACING BUT DOES ENDORSE INCREASED SHORTNESS OF BREATH WITH ELEVATED HEART RATE. OXYGEN SATURATION LEVEL DROPS TO LOW TO MID 80 PERCENTILE RANGE ON 2 LPM WITH ACTIVITY. INCREASED TO 4 LPM WITH ACTIVITY FOR ADDITIONAL SUPPORT.
--- NOTE | 2022-09-08 09:30 | NUR ---
ASSUMPTION OF CARE: PATIENT IS INFUSING HEPARIN, IS ALERT AND ORIENTED, PATIENT IS ABLE TO MAKE NEEDS KNOWN, VERY COOPERATIVE WITH CARE. ASK QUESTIONS IN REGARDS TO CARE, SHOWS ONLY A MINIMAL UNDERSTANDING OF CONDITION AT THIS TIME. BLOOD PRESSURE IS LOWER THAN PATIENT NORM, HOWEVER, HR HAS BEEN SLIGHLTY HIGHER, WILL CHECK TREND AFTER MORNING MEDICATIONS. PATIENT IS VISIBLY SOB WITH EXERTION, RECOVERS QUICKLY AND SUBCOUNSCIOUSLY DOES PURSED LIP BREATHING EDUCATION ON THIS GIVEN. WILL CONTINUE TO MONITOR UNTIL SHIFT CHANGE.
[2022-09-08] MEDS ORDERED: FAMO20 PO (18:35)
--- NOTE | 2022-09-08 18:59 | NUR ---
NO CHANGES FROM ASSUMPTION OF CARE. INCREASED DOSE OF METOPROLOL XL AT 1600. WILL FOLLOW UP WITH CARDIOLOGY IN THE AM. PATIENT HAS BEEN COOPERATIVE WITH CARE. USES CALL LIGHT APPROPRIATELY. NO CHEST PAIN. INCREASED SOB WITH EXERTION TO 4L TYPICALY ON 2L AND HAS TOLERATED 2L WITH EXERTION SPO2 >88% WARD CONTINUE TO MONITOR UNTIL SHIFT CHANGE.
--- NOTE | 2022-09-09 05:41 | NUR ---
NO ACUTE EVENTS OVERNIGHT LAST NIGHT. ATRIAL FIBRILLATION PERSISTS WITH RATES IN THE 90s-110s PRIMARILY, WITH OCCASIONAL RATES IN THE 120S-130S WITH ACTIVITY. MS. ZAVALA REPORTS STILL FEELING SHORT OF BREATH WITH ACTIVITY AND RAISE IN HEART RATE. SHE IS GETTING UP TO THE BEDSIDE COMMODE, BUT ATTEMPT TO AMBULATE TO THE BATHROOM CAUSED TOO GREAT OF AN INCREASE IN HER WORK OF BREATHING TO CONTINUE.
--- NOTE | 2022-09-09 10:13 | NUR ---
ASSUMPTION OF CARE: NEURO: PATIENT A/O X 4. ABLE TO MAKE NEEDS KNOWN. COOPERATIVE WITH CARE. PROVIDED EXTENSIVE EDUCATION. WILL CONTINUE TO REINFORCE. CARDIAC: DENIES CHEST PAIN PRESSURE OR INCREASED SOB AT REST FROM BASELINE. PATIENT IS INFUSING HEPARIN AND WILL BE SWITCHED TO ORAL ANTICOAG. PER CARDIOLOGY. PULM: DIM THROUGHOUT, PRN AND SCHEUDLED BREATHING TX WITH IMPROVMENT HR DECREASES. SPO2 92% WITH 2-3L VIA NC. GI/: LARGE HARD BM YESTERDAY. ABLE TO VOID WELL. BRAULIO HAVE BEEN USING BSC DUE TO HR. CONCERNS.: NO CONCERNS FROM THIS RN WILL CONTINUE TO MONITOR UNTIL SHIFT CHANGE. AND TREND HR. TELE IN PLACE.
[2022-09-09] MEDS ORDERED: METO100ER PO (18:43)
[2022-09-09] MEDS ORDERED: LOSA25 PO (18:43)
[2022-09-09] MEDS ORDERED: ELIQUIS5 M2 PO (18:43)
--- NOTE | 2022-09-09 18:57 | NUR ---
DISCHARGE SUMMARY: PATIENT IS IN NO SIGN OF ACUTE DISTRESS. PATIENT ON LESS THAN HOME O2. AND TOLERATING SPO2 >88%. PATIENT HAS BEEN CHEST PAIN FREE. IV'S REMOVED, AND TELE OFF OF PATIENT. DISCHARGE INSTRUCTIONS, EDUCATION AND MEDICATIONS FAXED. PATIENT HAD CLEAR UNDERSTANDING. VAST AMOUNT OF EDUCATION WAS GIVEN TO PATIENT FRIEND AND SON. NONE HAD FURTHER QUESTIONS OR CONCERNS. PATIENT IS IN AGREEANCE WITH PLAN WITH NO HESTITATION OR CONCERN. THIS PERFUMER HAS NO CONCERNS. PATIENT WAS WHEELED OUT BY [facility] TO FRIENDS CAR TO BE SENT HOME.
== END 2022-09-09 18:06 | disposition home or self-care (01) | DRG 309 ==
LOC: ER 00:09 → PCU 03:09
PROVIDERS: Emergency Medicine; Family Medicine; Internal Medicine; ADMIT Internal Medicine
DX: I48.91 Unspecified atrial fibrillation (principal); I50.22 Chronic systolic (congestive) heart failure; J96.11 Chronic respiratory failure with hypoxia; I11.0 Hypertensive heart disease with heart failure; J44.9 Chronic obstructive pulmonary disease, unspecified; I42.9 Cardiomyopathy, unspecified; I73.9 Peripheral vascular disease, unspecified; E87.70 Fluid overload, unspecified; R91.8 Other nonspecific abnormal finding of lung field; I35.1 Nonrheumatic aortic (valve) insufficiency; I27.20 Pulmonary hypertension, unspecified; Z20.822 Contact with and (suspected) exposure to COVID-19; Z98.890 Other specified postprocedural states; Z87.891 Personal history of nicotine dependence; Z88.2 Allergy status to sulfonamides; Z79.51 Long term (current) use of inhaled steroids; Z79.82 Long term (current) use of aspirin; Z79.899 Other long term (current) drug therapy; Z79.52 Long term (current) use of systemic steroids; Z95.1 Presence of aortocoronary bypass graft
CPT/HCPCS: 0241U; 36415; 71046; 80053; 80061; 80069; 83036; 83735; 83880; 84132; 84145; 84443; 84484; 85025; 85520; 85610; 85730; 93005; 93010; 93306; 94640; 94664; 94760; 94761; 94762; 96374; 99285-25; A9270; J1644; J3480; J7050

== ENCOUNTER 2023-02-28 07:55 | Inpatient (IN) | payer OTHER ==
[~2023-02-28] VITALS: Ht 162.6 cm; Wt 63.1 kg
[~2023-02-28 07:55] MED LIST changes: +ASPI81CH PO; +ELIQUIS5 M2 PO; +FAMO20 PO; +LOSA25 PO; +LOSARTAN-HCTZ1 EAC6 PO; +METO100ER PO; +PRED20 PO; +Ventolin5 MG/1 ML INH
[2023-02-28 08:25] LABS: BASOPHILS ABSOLUTE AUTO 0.06 K/mm3 (0.00-0.23); BASOPHILS PERCENT AUTO 1 % (0-2); EOSINOPHILS PERCENT AUTO 1 % (0-6); Hematocrit 40.7 % (33.0-51.0); Hemoglobin 12.2 g/dL (11.5-16.0); IMMATURE GRAN ABSOLUTE AUTO 0.03 K/mm3 (0.00-0.10); IMMATURE GRAN PERCENT AUTO 0 % (0-1); LYMPHOCYTES PERCENT AUTO 17 % (21-46); MONOCYTES ABSOLUTE AUTO 0.62 K/mm3 (0.16-1.47); MONOCYTES PERCENT AUTO 8 % (4-13); Mean Corpuscular HGB 27.9 pg (26.0-34.0); Mean Corpuscular Volume 93 fL (80-100); Mean Platelet Volume 10.8 fL (9.1-12.4); NEUTROPHILS ABSOLUTE AUTO 5.92 K/mm3 (1.96-9.15); NEUTROPHILS PERCENT AUTO 73 % (41-73); Platelet Count 252 K/mm3 (150-400); RDW Coefficient Variation 13.9 % (11.7-14.2); RDW Standard Deviation 47.5 fL (35.1-46.3); Red Blood Cell Count 4.38 M/mm3 (3.80-5.20); White Blood Cell Count 8.13 K/mm3 (4.00-11.30)
[2023-02-28 08:46] LABS: Albumin, Blood 2.9 g/dL (3.4-5.0); Albumin/Globulin Ratio 0.6 (0.8-1.8); Bilirubin, Total 0.4 mg/dL (0.1-1.0); Bun/Creatinine Ratio 32.9 (12.0-20.0); Calcium, Blood 8.9 mg/dL (8.5-10.1); Creatinine, Blood 0.43 mg/dL (0.40-1.00); Globulin, Blood 4.8 g/dL (2.2-4.0); Potassium, Blood 4.5 mmol/L (3.5-5.5); Total Protein, Blood 7.7 g/dL (6.4-8.2)
[2023-02-28 09:20] LABS: Influenza A, PCR NEGATIVE (NEGATIVE); Influenza B, PCR NEGATIVE (NEGATIVE); Resp Syncytial Virus, PCR NEGATIVE (NEGATIVE); SARS-Cov-2 (COVID-19) PCR, MMC NEGATIVE (NEGATIVE)
[2023-02-28 11:19] LABS: Digoxin (Lanoxin) 0.09 ug/mL (0.80-2.00)
[2023-02-28 12:57] VITALS: BP 148/110
[2023-02-28] MEDS ORDERED: ROSUVASTATIN CA20 MG PO (13:05)
[2023-02-28] MEDS ORDERED: LOSARTAN POTASS25 M2 PO (13:05)
--- NOTE | 2023-02-28 14:57 | NUR ---
ADMISSION TO PCU: PATIENT ALERT AND ORIENTED. PERRLA. SLIGHTLY YUHAAVIATAM. DENIES NUMBNESS/TINGLING. STRONG BILATERAL MESMERIST. FOLLOWING COMMANDS. ON 4L NASAL CANNULA SATING MID-HIGH 90'S. VERY DIMINISHED LUNG SOUNDS. AT TIMES USING ACCESSORY MUSCLES AND PURSED LIP BREATHING. BIPAP ON STANBY AT BEDSIDE. PATIENT STATES SHE USES 2.5L NASAL CANNULA PRN AT HOME. OCCASIONAL NONPRODUCTIVE COUGH. EVEN AND UNLABORDED BREATHING AT THIS TIME. TELE SHOWING AFIB RVR WITH HR 120-150'S ON ADMISSION. DR. RAZO CALLED AND HOME PO METOPROLOL STARTED. PT HR TRENDING DOWN 110-130'S AT THIS TIME. BP STABLE. DENIES CHEST PAIN/PRESSURE/PALPITATIONS. NO EDEMA NOTED. PPP. PO ANTICOAGS ORDERED. DENIES ABDOMINAL PAIN/NAUSEA. CLEAR LIQUID DIET UPON ADMIT, NO SWALLOWING ISSUES NOTED AND WORK OF BREATHING IMPROVED. DIET ADVANCED TO REGULAR. PATIENT EATING WNL. PUREWICK IN PLACE. ATTENDS CLEAN AND DRY. BOWEL TONES PRESENT. SON AT BEDSIDE. PALLIATIVE CARE IN TO HELP FILL OUT POLST. ORIENTED TO ROOM AND UNIT. EDUCATED ON FIRE RISK AND IGNITION SOURCES. PATIENT DENIES HAVING ANY SOURCE OF IGNITION.
[2023-02-28 15:23] VITALS: BP 127/75
--- NOTE | 2023-02-28 15:44 | NUR ---
Received call from Pt's Primary RN Kimberley reporting Pt and son would like assistance with completing a POLST. Pt resting in bed and is A&OX4. Pt denies pain, dyspnea, and anxiety at this time. Pt's son Tristan is at bedside. Discussed options to choose from POLST and educated on options. Assisted Pt with completing POLST. Pt's wishes on POLST is DNR and Limited Treatment. Engaged in conversation regarding advanced care planning. Educated on disease process including trajectory and the importance of planning for the future. Discussed the importance of routine conversations with PCP. Offered therapeutic listening and answered questions. Pt and son express appreciation and report no other concerns at this time. Dr Arthur signs POLST. Delivered copy of POLST to medical records via hospital tube system. Original POLST given to Pt's son and instructed to hang on refridgerator at home. Palliative Care will remain available
--- NOTE | 2023-02-28 18:48 | NUR ---
SHIFT SUMMARY: NO ACUTE CHANGES, SEE PREVIOUS NOTES. REMAINS ON 4L NASAL CANNULA SATING MID 90'S. BIPAP ON STANDBY. AFIB WITH HR IMPROVING 100-110'S. BP STABLE. EATING AND VOIDING WNL. IV LASIX GIVEN WITH ADEQUATE URINE OUTPUT. SHIRIN HANSON AT BEDSIDE. ONE BOWEL MOVEMENT THIS SHIFT. CALL LIGHT IN REACH.
[2023-02-28 19:53] VITALS: BP 124/65
[2023-02-28 23:22] VITALS: BP 143/71
--- NOTE | 2023-03-01 01:21 | NUR ---
SAFETY & EDUCATION PT & FAMILY EDUCATED RE: IGINITION SOURCES AND RISK OF INJURY WHILE OXYGEN IS IN USE. PT DENIES SMOKING & PT AND FAMILY VERBALIZE UNDERSTANDING.
[2023-03-01 03:30] VITALS: BP 152/79
--- NOTE | 2023-03-01 04:51 | NUR ---
SHIFT SUMMARY SEE PREVIOUS NOTE. PT A&Ox4, CALLS AND COMMUNICATES NEEDS APPRORIATELY. BP STABLE, AFIB 80-120's, DENIES CP/PRESSURE. SpO2> 92% 3-4L VIA NC, DENIES SOB. PT REPORTS INCONTINENCE OF URINE AT TIMES, PUREWICK IN PLACE. NO BM THIS SHIFT. NO OTHER EVENTS, WILL REPORT TO ONCOMING RN.
[2023-03-01 04:56] LABS: Hematocrit 37.8 % (33.0-51.0); Hemoglobin 11.6 g/dL (11.5-16.0); Mean Corpuscular HGB 27.6 pg (26.0-34.0); Mean Corpuscular HGB Conc 30.7 g/dL (31.5-36.5); Mean Corpuscular Volume 90 fL (80-100); Mean Platelet Volume 11.5 fL (9.1-12.4); Platelet Count 248 K/mm3 (150-400); RDW Coefficient Variation 14.3 % (11.7-14.2); RDW Standard Deviation 46.5 fL (35.1-46.3); White Blood Cell Count 12.69 K/mm3 (4.00-11.30)
[2023-03-01 05:28] LABS: Albumin, Blood 2.6 g/dL (3.4-5.0); Albumin/Globulin Ratio 0.6 (0.8-1.8); Bilirubin, Total 0.3 mg/dL (0.1-1.0); Bun/Creatinine Ratio 29.3 (12.0-20.0); Calcium, Blood 8.9 mg/dL (8.5-10.1); Creatinine, Blood 0.44 mg/dL (0.40-1.00); Globulin, Blood 4.5 g/dL (2.2-4.0); Magnesium, Blood 1.8 mg/dL (1.6-2.4); Potassium, Blood 3.8 mmol/L (3.5-5.5); Total Protein, Blood 7.1 g/dL (6.4-8.2)
[2023-03-01 06:16] LABS: Base Excess Venous 21.5 mmol/L; Bicarbonate Venous 41.9 mmol/L (24.0-30.0); PCO2 Venous 72.2 mmHg (38-42); pH Blood Venous 7.41 (7.34-7.37)
[2023-03-01 08:37] VITALS: BP 122/78
[2023-03-01 12:00] VITALS: BP 137/82
--- NOTE | 2023-03-01 18:43 | NUR ---
SHIFT SUMMARY S/P RESP FAIL, A/OX4, VSS, TOLERATING PO, DENIES PAIN, DENIES SOB, DENIES CHEST PAIN/PRESSURE, TITRATED FROM 3L DOWN TO 2L O2 VIA NC, TRANSITIONED FROM PURE WICK TO USING BSC, DOES WELL WITH STAND PIVOT TRANSFERS JUST NEEDING HELP WITH LINE MANAGEMENT, STATUS CHANGED TO MEDICAL TODAY AND WAS TRANSFERRED UP TO ROOM 329 ON MEDICAL FLOOR, REPORT GIVEN TO MEDICAL FLOOR RN, PT BROUGHT UP VIA WC TO HER NEW ROOM WITH ALL PERSONAL POSSESSIONS AND HER PHYSICAL CHART.
[2023-03-01 19:39] VITALS: BP 130/92
--- NOTE | 2023-03-01 19:47 | NUR ---
MD CALL AFIB HEART RATE UP TO 150S, FLUCTUATING BETWEEN 120-150S. CALLED FROM [facility]. PT WAS RESTING IN BED, THEN WAS UP TO BSC, DENIED CHEST PAIN OR NEW SYMPTOMS. DR STANTON CALLED AND NOTIFIED. HE WILL ENTER ORDERS.
--- NOTE | 2023-03-01 20:36 | NUR ---
MD CALL. CALL FROM [employer] TO NOTIFY OF 7 BEATS VTACH. PT COMFORTABLE AND RESTING IN BED. DR STANTON CALLED AND NOTIFIED. NO NEW ORDERS AT THIS TIME.
[2023-03-02 02:54] VITALS: BP 165/95
--- NOTE | 2023-03-02 04:41 | NUR ---
SHIFT SUMMARY MS ZAVALA HAD EPISODES OF AFIB UP TO 150S AND ONE EPISODE OF 7 BEATS VTACH AT THE BEGINNING OF THE SHIFT. NO CHEST PAIN OR NEW SYMPTOMS WITH EVENTS. POTASSIUM AND MAGNESIUM REPLACEMENTS GIVEN. CURRENTLY IN AFIB 90S TO LOW 100S. SBP 160S THIS AM WHILE PT RESTING. NO CHEST PAIN. +SOB ON MINIMAL EXERTION, ON 2L N/C OVERNIGHT. PT EDUCATED RE IGNITION SOURCES AND RISK FOR INJURY WHILE OXYGEN IN USE. SHE DENIED BEING A SMOKER AND VERBALISED UNDERSTANDING. REASSESSMENT WITH Q1-2 HRLY ROUNDS. BED LOW, CALL LIGHT IN REACH.
[2023-03-02 06:07] LABS: Bun/Creatinine Ratio 27.6 (12.0-20.0); Calcium, Blood 8.9 mg/dL (8.5-10.1); Creatinine, Blood 0.54 mg/dL (0.40-1.00); Potassium, Blood 4.1 mmol/L (3.5-5.5)
[2023-03-02 07:49] VITALS: BP 150/84
[2023-03-02 15:12] VITALS: BP 121/78
--- NOTE | 2023-03-02 18:52 | NUR ---
DAYSHIFT SUMMARY Patient AOx4. Plan is to stay overnight, increased metoprolol to control rate. IV magnesium administred. Continuing to given IV Lasix. Vitals stable, sats stable on 2lpm. Educated patient on ignition sources & risk of injury when oxygen in use. Patient verbalized understanding and denied having any sources in belongings. Will continue plan of care.
[2023-03-02 20:46] VITALS: BP 132/86
[2023-03-03 04:13] VITALS: BP 146/91
--- NOTE | 2023-03-03 05:11 | NUR ---
SHIFT SUMMARY PATIENT ALERT, PLEASANT, COOPERATIVE WITH ALL CARES. DENIES PAIN NOR DISCOMFORT. DENIES SOB NOR DIFFICULTY BREATHING. NOTED FAINT CRACKLES TO BASES. NO ACUTE CHANGES OVERNIGHT. APPEARES TO BE RESTING SOUNDLY IN BED AT THIS TIME. CONTINUES ON TELE, AFIB 90s. PIV TO LEFT HAND, PATENT, SL. EDUCATED ON FIRE SAFETY AND RISK OF INJURY R/T OXYGEN USE, VERBALIZED UNDERSTANDING, DENIES SMOKING NOR ANY ACCESS TO SOURCES OF IGNITION. BED LOW, CALL LIGHT WITHIN REACH.
[2023-03-03 06:05] LABS: Bun/Creatinine Ratio 30.9 (12.0-20.0); Calcium, Blood 8.6 mg/dL (8.5-10.1); Creatinine, Blood 0.49 mg/dL (0.40-1.00); Potassium, Blood 3.9 mmol/L (3.5-5.5)
[2023-03-03 07:28] VITALS: BP 145/103
--- NOTE | 2023-03-03 07:30 | NUR ---
ASSUMED CARE: PT BEING ASSISTED BY LOCOMOTIVE LUBRICATING SYSTEMS CLERK BACK TO BED FROM COMMODE. AFIB IN 90S ON TELE. 2.5L VIA NC. NO ACUTE NEEDS OR CONCERNS AT THIS TIME.
--- NOTE | 2023-03-03 11:43 | NUR ---
TELE CALLED STATING PT HAD A 14 BEAT RUN OF PVC/VTACH. TELE CALLED BACK AND STATED THAT IN THE LAST 48 HOURS 2 OTHER RUNS OF PVC/VTACH WERE SEEN. CALL DR LANDIN WHO STATED HE WOULD REVIEW CHART AND ELECTROLYTES TO SEE IF ANYTHING ELSE CAN BE DONE. PT APPEARS TO HAVE NO NEEDS OR CONCERNS AT THIS TIME.
--- NOTE | 2023-03-03 15:27 | NUR ---
IGNITION RISK: PT'S FAMILY AND PT HAVE BEEN ASKED ABOUT POSSESSION OF CIGARRETTES, LIGHTERS, AND MATCHES TO WHICH THEY DENY THE POSSESSION OF.
[2023-03-03 16:48] VITALS: BP 125/65
--- NOTE | 2023-03-03 18:32 | NUR ---
SHIFT SUMMARY: PT RESTING IN BED ON 2L. PLANS FOR POSSIBLE DISCHARGE TOMORROW OR THE NEXT DAY. CONTINUING DIURESIS. FAMILY AT BEDSIDE TODAY. NO ACUTE NEEDS OR CONCERNS.
[2023-03-03 19:54] VITALS: BP 144/91
[2023-03-04 03:05] VITALS: BP 138/81
--- NOTE | 2023-03-04 04:33 | NUR ---
OPTICAL MECHANIC APPRENTICE SUMMARY VSS. O2 CA NC AT 2L/MIN. HAS BEEN RESTING QUIETLY WITH FEW INTERRUPTIONS. HOB ELEVATED FOR COMFORT. MED TELE A FIB WITH ONE EPISODE OF 10 EC RUN OF V TACH. ASYMPTOMATIC. CONTINENT. LUNG SOUNDS DIMINISHED IN LOWER LOBES. CALL LIGHT IN REACH. WILL CONTINUE TO MONITOR
[2023-03-04 06:27] LABS: Bun/Creatinine Ratio 26.7 (12.0-20.0); Creatinine, Blood 0.52 mg/dL (0.40-1.00); Potassium, Blood 3.6 mmol/L (3.5-5.5)
[2023-03-04 07:17] VITALS: BP 142/128
[2023-03-04 15:45] VITALS: BP 109/65
--- NOTE | 2023-03-04 18:42 | NUR ---
SHIFT SUMMARY: PT A/O X 4, STANDBY ASSIST WITH WALKER. NO REPORTS FROM TELE. NO COMPLAINTS FROM PT. PLEASANT AND COOPERATIVE. VSS.
[2023-03-04 19:36] VITALS: BP 124/63
--- NOTE | 2023-03-05 05:21 | NUR ---
PT IS A&O4, SB WITH FWW TO BR, 2L NC @BASELINE, VSS, NO COMPLAINTS OF PAIN OR DISCOMFORT OVERNIGHT, OR ACUTE OVERNIGHT EVENTS, FIRE SAFETY WITH 02 USE EDUCATION PROVIDED, CONTINUE POC
[2023-03-05 05:25] VITALS: BP 141/88
[2023-03-05 06:20] LABS: Bun/Creatinine Ratio 28.6 (12.0-20.0); Calcium, Blood 8.7 mg/dL (8.5-10.1); Creatinine, Blood 0.49 mg/dL (0.40-1.00); Magnesium, Blood 1.9 mg/dL (1.6-2.4); Potassium, Blood 3.8 mmol/L (3.5-5.5)
[2023-03-05 07:15] VITALS: BP 137/84
[2023-03-05] MEDS ORDERED: Amlodipine Bes2.5 MG PO (12:16)
[2023-03-05] MEDS ORDERED: JARDIANCE10 MG PO (12:17)
[2023-03-05] MEDS ORDERED: DOCUZEN 8.6-501 EACH PO (12:17)
[2023-03-05] MEDS ORDERED: MIRALAX17 GM PO (12:18)
[2023-03-05] MEDS ORDERED: OMEP20ER PO (12:18)
[2023-03-05] MEDS ORDERED: VITAMIN D5000 UNIT PO (12:19)
[2023-03-05] MEDS ORDERED: DELTASONE20 MG PO (12:19)
[2023-03-05] MEDS ORDERED: Lasix40 MG PO (12:19)
--- NOTE | 2023-03-05 13:55 | NUR ---
DISCHARGE SUMMARY: PT DISCHARGED HOME, PT EDUCATED ON MEDICATIONS AND INSTRUCTIONS. PT VU. PT ASSISTED WITH PACKING UP BELONGINGS. PT ESCORTED TO POV VIA WC BY BAKERY WORKER WITH PORTABLE O2.
== END 2023-03-05 14:02 | disposition home health service (06) | DRG 291 ==
LOC: ER 07:55 → PCU 10:31 → MEDS 10:31 → PCU 12:51 → MEDS 03-01 18:16 → ENPENDDIS 03-05 10:20 → MEDS 03-05 14:02
PROVIDERS: Emergency Medicine; Internal Medicine; ADMIT Internal Medicine
PROC: 5A09357 Assistance with Respiratory Ventilation, Less than 24 Consecutive Hours, Continuous Positive Airway Pressure (ICD-10-PCS; principal; 2023-02-28)
DX: I11.0 Hypertensive heart disease with heart failure (principal); I50.43 Acute on chronic combined systolic (congestive) and diastolic (congestive) heart failure; J96.21 Acute and chronic respiratory failure with hypoxia; J96.22 Acute and chronic respiratory failure with hypercapnia; I47.20 Ventricular tachycardia, unspecified; I48.20 Chronic atrial fibrillation, unspecified; J44.1 Chronic obstructive pulmonary disease with (acute) exacerbation; Z51.5 Encounter for palliative care; Z66 Do not resuscitate; I42.0 Dilated cardiomyopathy; R94.5 Abnormal results of liver function studies; I49.1 Atrial premature depolarization; I27.20 Pulmonary hypertension, unspecified; Z20.822 Contact with and (suspected) exposure to COVID-19; I73.9 Peripheral vascular disease, unspecified; E78.5 Hyperlipidemia, unspecified; Z98.890 Other specified postprocedural states; Z95.1 Presence of aortocoronary bypass graft; Z95.828 Presence of other vascular implants and grafts; Z79.01 Long term (current) use of anticoagulants; Z88.2 Allergy status to sulfonamides; Z79.51 Long term (current) use of inhaled steroids; Z79.82 Long term (current) use of aspirin; Z87.891 Personal history of nicotine dependence; Z79.899 Other long term (current) drug therapy
CPT/HCPCS: 0241U; 36415; 71045; 80048; 80053; 80162; 82803; 83735; 83880; 84484; 85025; 85027; 93005; 93010; 93306; 94640; 94644; 94660; 94664; 94760; 94762; 96374; 97116; 97162; 97166; 97530; 97535; 99285-25; A9270; J1940; J3475; J7050; J7512

== ENCOUNTER 2023-05-21 11:26 | Inpatient (IN) | payer OTHER ==
[~2023-05-21] VITALS: Ht 162.6 cm; Wt 60.6 kg
[~2023-05-21 11:26] MED LIST changes: +DELTASONE20 MG PO; +DOCUZEN 8.6-501 EACH PO; +JARDIANCE10 MG PO; +LOSARTAN POTASS25 M2 PO; +Lasix40 MG PO; +MIRALAX17 GM PO; +OMEP20ER PO; +ROSUVASTATIN CA20 MG PO; +VITAMIN D5000 UNIT PO
[2023-05-21 11:48] LABS: BASOPHILS ABSOLUTE AUTO 0.05 K/mm3 (0.00-0.23); BASOPHILS PERCENT AUTO 1 % (0-2); EOSINOPHILS ABSOLUTE AUTO 0.02 K/mm3 (0.00-0.68); EOSINOPHILS PERCENT AUTO 0 % (0-6); Hematocrit 37.5 % (33.0-51.0); Hemoglobin 11.6 g/dL (11.5-16.0); IMMATURE GRAN ABSOLUTE AUTO 0.02 K/mm3 (0.00-0.10); IMMATURE GRAN PERCENT AUTO 0 % (0-1); LYMPHOCYTES ABSOLUTE AUTO 0.99 K/mm3 (0.84-5.20); LYMPHOCYTES PERCENT AUTO 13 % (21-46); MONOCYTES ABSOLUTE AUTO 0.69 K/mm3 (0.16-1.47); MONOCYTES PERCENT AUTO 9 % (4-13); Mean Corpuscular HGB 27.3 pg (26.0-34.0); Mean Corpuscular HGB Conc 30.9 g/dL (31.5-36.5); Mean Corpuscular Volume 88 fL (80-100); Mean Platelet Volume 10.9 fL (9.1-12.4); NEUTROPHILS ABSOLUTE AUTO 5.71 K/mm3 (1.96-9.15); NEUTROPHILS PERCENT AUTO 76 % (41-73); Platelet Count 256 K/mm3 (150-400); RDW Coefficient Variation 14.9 % (11.7-14.2); RDW Standard Deviation 47.8 fL (35.1-46.3); Red Blood Cell Count 4.25 M/mm3 (3.80-5.20); White Blood Cell Count 7.48 K/mm3 (4.00-11.30)
[2023-05-21 12:02] LABS: International Normalized Ratio 1.04; Prothrombin Time Results 10.9 Sec (9.7-11.5)
[2023-05-21 12:08] LABS: Alanine Aminotransfer (ALT/SGP 29 U/L (12-78); Albumin, Blood 3.2 g/dL (3.4-5.0); Albumin/Globulin Ratio 0.7 (0.8-1.8); Alk Phos 74 U/L (50-136); Anion Gap 0 mmol/L (6-16); Aspartate Aminotrans (AST/SGOT 29 U/L (12-37); Bilirubin, Total 0.3 mg/dL (0.1-1.0); Blood Urea Nitrogen 9 mg/dL (8-24); Bun/Creatinine Ratio 13.9 (12.0-20.0); CO2, Blood 38 mmol/L (21-32); Calcium, Blood 9.3 mg/dL (8.5-10.1); Chloride, Blood 100 mmol/L (98-108); Creatinine, Blood 0.65 mg/dL (0.40-1.00); Ethanol (Alcohol), Blood, Med <3 mg/dL; Globulin, Blood 4.5 g/dL (2.2-4.0); Glomerular Filtration Rate 86 (60-); Glucose, Blood 162 mg/dL (70-99); Potassium, Blood 4.2 mmol/L (3.5-5.5); Sodium, Blood 138 mmol/L (136-145); Total Protein, Blood 7.7 g/dL (6.4-8.2)
[2023-05-21 15:01] LABS: U Amphetamine Screen Not Detected; U Barbituate Screen Not Detected; U Benzodiazapine Screen Not Detected; U Buprenorphine Screen Not Detected; U Cannabinoids Screen Not Detected; U Cocaine Screen Not Detected; U Methadone Screen Not Detected; U Methamphetamine Screen Not Detected; U Opiates Screen Not Detected; U Oxycodone Screen Not Detected; U Phencyclidine Screen Not Detected; U Propoxyphene Screen Not Detected
[2023-05-21 15:50] VITALS: BP 204/84
[2023-05-21] MEDS ORDERED: LOSA25 PO (16:30)
[2023-05-21 19:37] VITALS: BP 185/78
[2023-05-22 05:19] VITALS: BP 166/93
--- NOTE | 2023-05-22 06:41 | NUR ---
SHIFT SUMMARY A/Ox4 AND COOPERATIVE WITH CARE. ANSWERS QUESTIONS APPROPRIATELY AND ABLE TO MAKE HER NEEDS KNOWN. CONTINUES TO DEMONSTRATE LEFT SIDED DEFICITS WITH NOTICEABLE FACIAL DROOP AND SLURRED SPEECH. LEFT ARM CONTINUES TO BE MOSTLY FLACCID, BUT STILL ABLE TO SLIGHTLY MOVE LEFT LEG. CARDIAC, REMAINS V-PACED 80 S WITH NO COMPLAINTS OF CP OR PRESSURE. SBP HAS BEEN HIGH RANGING 160-180'S. HTN ACCEPTABLE ORDERED PER MD DUE TO ACUTE CVA. RESPIRATORY MAINTAINS SPO2 96-98% ON BASELINE OF 1L VIA NC. DENIES ANY SOB OR DYSPNEA WHILE AT REST. GI/, ABLE TO AMBULATE TO [facility] [place] VIA 2 STAFF ASSIST TO VOID YELLOW URINE. NO BM THIS SHIFT. DENIES ANY N/V. SCHEDULED FOR MRI THIS AM. PT/OT ON BOARD WELL PENDING VISIT FROM SPEECH THERAPY THIS AM. ASSESSED PT FOR RISKS OF ANY IGNITION SOURCES WELL BEHAVIORS FOR INCREASED RISKS OF FIRE DANGER. PT EDUCATED ON COMMON SOURCES OF IGNITION WELL NEED TO KEEP A SAFE ENVIRONMENT. NO NEW ORDERS AT THIS TIME, WILL REPORT TO ONCOMING RN. MICK JOHNSON OF THIS NOTE
[2023-05-22 07:36] VITALS: BP 186/75
[2023-05-22 10:02] VITALS: BP 177/69
--- NOTE | 2023-05-22 11:06 | NUR ---
Pt up in chair noted facial droop. Speech slurred. good eye contact, bright affect.Denies headache blurred vision or ringing in ears. denies pain or nausea. Review with pt and DIL that if you have discomfort or nasea or headache to tell the nurse right away. Praised her for her drive and gave encouragement for rehab. pt has polst. Shaji Winston has spoke with son will have him follow up on poa and advance directives.
[2023-05-22 15:48] VITALS: BP 166/97
--- NOTE | 2023-05-22 17:11 | NUR ---
SHIFT SUMMARY: JB IS HERE 1 DAY POST CVA. SHE HAS SHOWED IMPROVEMENT IN CONDITION TODAY BY BEING ABLE TO LIFT/MOVE HER LEFT ARM AND SPEECH IS LESS SLURRED. SHE ADVANCED TO PUREE AND NECTAR THICK DIET TODAY AFTER HER SPEECH EVALUATION AND PLANS TO UNDERGO AN MODIFIED BARRIUM SWALLOW AND CT TOMORROW 05/23. SHE HAS REMAINED ALERT AND ORIENTED X4 AND SHE IS A 1 PERSON ASSIST WITH WALKER AND GAIT BELT. SHE IS IN BED IN THE LOWEST POSITION, CALL LIGHT WITHIN REACH; KNOWS TO CALL FOR ASSISTANCE, AND NOT SHOWING AND SIGNS OF SYMPTOMS OF DISTRESS. PLAN OF CARE ONGOING.
[2023-05-22 19:58] VITALS: BP 121/106
[2023-05-23 04:24] VITALS: BP 168/83
--- NOTE | 2023-05-23 04:46 | NUR ---
SHIFT SUMMARY PATIENT IS A/Ox4, PLEASANT/BRIGHT AFFECT. NO C/O PAIN NOR DISCOMFORT STATED. SPEECH IS SLURRED BUT UNDERSTANDABLE. STEADY IMPROVEMENT OF POST CVA DEFICITS. REQUIRES SBA TO 1 ASSIST WITH TRANSFERS. ON TELE, VENT PACED IN 80s. NO ACUTE CHANGES NOTED OVERNIGHT. BED LOCKED AND IN LOWEST POSITION, CALL LIGHT WITHIN REACH.
[2023-05-23 07:45] VITALS: BP 168/75
[2023-05-23 15:33] VITALS: BP 189/84
[2023-05-23 18:53] VITALS: BP 174/68
[2023-05-23 19:43] VITALS: BP 172/78
--- NOTE | 2023-05-23 19:54 | NUR ---
SHIFT SUMMARY- PT HAS HAD NO ACUTE CORPORATE DIRECTOR THE TWO HOURS SINCE THIS RN ASSUMED CARE. THE PT BP WAS NOTED TO BE ELEVATED ON LAST VITALS, VITALS WERE RECHECKED, PT DID NOT REQUIRE PRN MEDS (PER PARAMETERS) ON RECHECK. PT ALERT TO SELF AND FAMILY. LLEFT SIDE FLACID. PLAN IS TO DC TO [facility]. TRANSPORT IS AN ISSUE, CARE MANAGEMENT ON THE CASE. PT IN A PLEASENT MOOD SITTING UP IN BED, CALL LIGHT IN REACH NO S&S OF DISTRESS.
[2023-05-24 03:31] VITALS: BP 162/80
[2023-05-24 05:52] LABS: BASOPHILS ABSOLUTE AUTO 0.05 K/mm3 (0.00-0.23); BASOPHILS PERCENT AUTO 1 % (0-2); EOSINOPHILS ABSOLUTE AUTO 0.09 K/mm3 (0.00-0.68); EOSINOPHILS PERCENT AUTO 1 % (0-6); Hemoglobin 11.7 g/dL (11.5-16.0); IMMATURE GRAN ABSOLUTE AUTO 0.01 K/mm3 (0.00-0.10); IMMATURE GRAN PERCENT AUTO 0 % (0-1); LYMPHOCYTES ABSOLUTE AUTO 1.39 K/mm3 (0.84-5.20); LYMPHOCYTES PERCENT AUTO 19 % (21-46); MONOCYTES ABSOLUTE AUTO 0.88 K/mm3 (0.16-1.47); MONOCYTES PERCENT AUTO 12 % (4-13); Mean Corpuscular HGB 27.1 pg (26.0-34.0); Mean Corpuscular HGB Conc 30.8 g/dL (31.5-36.5); Mean Corpuscular Volume 88 fL (80-100); Mean Platelet Volume 11.3 fL (9.1-12.4); NEUTROPHILS ABSOLUTE AUTO 4.77 K/mm3 (1.96-9.15); NEUTROPHILS PERCENT AUTO 66 % (41-73); Platelet Count 231 K/mm3 (150-400); RDW Coefficient Variation 14.6 % (11.7-14.2); RDW Standard Deviation 47.1 fL (35.1-46.3); Red Blood Cell Count 4.32 M/mm3 (3.80-5.20); White Blood Cell Count 7.19 K/mm3 (4.00-11.30)
[2023-05-24 06:23] LABS: Bun/Creatinine Ratio 12.6 (12.0-20.0); Calcium, Blood 8.9 mg/dL (8.5-10.1); Creatinine, Blood 0.48 mg/dL (0.40-1.00); Potassium, Blood 3.7 mmol/L (3.5-5.5)
[2023-05-24 07:43] VITALS: BP 178/78
[2023-05-24 15:46] VITALS: BP 119/89
[2023-05-24 16:30] VITALS: BP 168/89
[2023-05-24] MEDS ORDERED: ATOR40TA PO (17:09)
[2023-05-24] MEDS ORDERED: AMLO5 PO (17:09)
[2023-05-24] MEDS ORDERED: JARDIANCE10 MG PO (17:09)
[2023-05-24] MEDS ORDERED: CLOP75 PO (17:09)
--- NOTE | 2023-05-24 18:23 | NUR ---
SHIFT/DISCHARGE SUMMARY: PATIENT IS A/OX4. CALM, PLEASANT AND COOPERATIVE c CARE. USES CALL LIGHT APPROPRIATELY AND ABLE TO MAKE NEEDS KNOWN. PATIENT DENIES CP/PRESSURE, SOB, N/V AND DIZZINESS. ON TELE, V-PACED HR IN THE HIGH 80'S BPM. PATIENT ON 2L VIA NC c SPO2 ABOVE 95%. PATIENT IS CONTINENCE OF BLADDER AND USES BSC c 1 ASSIST. PATIENT WORKS c PT/OT MOBILITY THIS AM AND TOLERATED WELL. PATIENT RECEIVED SCHEDULED MEDS PER EMAR. VITAL SIGNS REVIEWED. PIV TO LAC WAS DC'D BY YASIR LOPEZ CNA. PATIENT DISCHARGE TO [facility]. DISCHARGE INSTRUCTION PACKET WAS FAXED TO THE FACILITY BY DOUGHNUT MAKER KAVITA ODOM AND GIVEN TO RIDE ASSOCIATE. REPORTS GIVEN TO NURSE ISATU AT AROUND 1820. PATIENT LEFT THE ROOM AT AROUND 1820 AND WAS TRANSPORTED VIA WHEELCHAIR BY [employer].
== END 2023-05-24 18:54 | disposition home or self-care (01) | DRG 65 ==
LOC: ER 11:26 → MEDS 11:27 → ER 14:09 → MEDS 15:45
PROVIDERS: Family Medicine; Student in an Organized Health Care Education/Training Program; ADMIT Hospitalist
DX: I63.512 Cerebral infarction due to unspecified occlusion or stenosis of left middle cerebral artery (principal); G81.94 Hemiplegia, unspecified affecting left nondominant side; J96.11 Chronic respiratory failure with hypoxia; I50.22 Chronic systolic (congestive) heart failure; I73.9 Peripheral vascular disease, unspecified; E78.5 Hyperlipidemia, unspecified; Z66 Do not resuscitate; I11.0 Hypertensive heart disease with heart failure; I48.91 Unspecified atrial fibrillation; J44.9 Chronic obstructive pulmonary disease, unspecified; K21.9 Gastro-esophageal reflux disease without esophagitis; I65.22 Occlusion and stenosis of left carotid artery; I65.02 Occlusion and stenosis of left vertebral artery; I27.20 Pulmonary hypertension, unspecified; I35.0 Nonrheumatic aortic (valve) stenosis; Z95.0 Presence of cardiac pacemaker; R29.810 Facial weakness; Z88.2 Allergy status to sulfonamides; Z91.048 Other nonmedicinal substance allergy status; Z79.82 Long term (current) use of aspirin; Z79.52 Long term (current) use of systemic steroids; Z79.01 Long term (current) use of anticoagulants; Z79.899 Other long term (current) drug therapy; Z95.1 Presence of aortocoronary bypass graft; Z98.890 Other specified postprocedural states; Z87.891 Personal history of nicotine dependence; Z95.820 Peripheral vascular angioplasty status with implants and grafts
CPT/HCPCS: 36415; 70450; 70496; 70498; 74230; 80048; 80053; 85025; 85610; 92526; 92610; 92611; 93005; 93010; 93306; 97110; 97112; 97116; 97162; 97166; 97530; 99285-25; A9270; G0378; J1650; J7030; Q9967

== ENCOUNTER 2024-04-28 09:31 | Observation (INO) | payer OTHER ==
[~2024-04-28] VITALS: Ht 162.6 cm; Wt 54.4 kg
[~2024-04-28 09:31] MED LIST changes: +AMLO5 PO; +ATOR40TA PO; +CLOP75 PO
[2024-04-28] MEDS ORDERED: Ipratropium Bromide INH 0.02% 0.5 mg/2.5ML Vial INH SCH ×2 (10:15→13:35)
[2024-04-28] MEDS ORDERED: Albuterol 2.5 MG/3 ML VIAL INH SCH ×2 (10:15→13:35)
[2024-04-28 10:19] LABS: BASOPHILS ABSOLUTE AUTO 0.06 K/mm3 (0.00-0.23); BASOPHILS PERCENT AUTO 1 % (0-2); EOSINOPHILS ABSOLUTE AUTO 0.27 K/mm3 (0.00-0.68); EOSINOPHILS PERCENT AUTO 4 % (0-6); Hematocrit 37.4 % (33.0-51.0); Hemoglobin 11.5 g/dL (11.5-16.0); IMMATURE GRAN ABSOLUTE AUTO 0.03 K/mm3 (0.00-0.10); IMMATURE GRAN PERCENT AUTO 0 % (0-1); LYMPHOCYTES ABSOLUTE AUTO 0.64 K/mm3 (0.84-5.20); LYMPHOCYTES PERCENT AUTO 9 % (21-46); MONOCYTES ABSOLUTE AUTO 0.71 K/mm3 (0.16-1.47); MONOCYTES PERCENT AUTO 10 % (4-13); Mean Corpuscular HGB 27.8 pg (26.0-34.0); Mean Corpuscular HGB Conc 30.7 g/dL (31.5-36.5); Mean Corpuscular Volume 91 fL (80-100); Mean Platelet Volume 10.2 fL (9.1-12.4); NEUTROPHILS PERCENT AUTO 77 % (41-73); Platelet Count 365 K/mm3 (150-400); RDW Coefficient Variation 12.8 % (11.7-14.2); RDW Standard Deviation 42.6 fL (35.1-46.3); Red Blood Cell Count 4.13 M/mm3 (3.80-5.20); White Blood Cell Count 7.51 K/mm3 (4.00-11.30)
[2024-04-28 10:41] LABS: Albumin, Blood 2.9 g/dL (3.4-5.0); Albumin/Globulin Ratio 0.6 (0.8-1.8); Bilirubin, Total 0.2 mg/dL (0.1-1.0); Bun/Creatinine Ratio 20.2 (12.0-20.0); Calcium, Blood 9.6 mg/dL (8.5-10.1); Creatinine, Blood 0.4 mg/dL (0.40-1.00); Globulin, Blood 4.7 g/dL (2.2-4.0); Potassium, Blood 3.7 mmol/L (3.5-5.5); Total Protein, Blood 7.6 g/dL (6.4-8.2)
[2024-04-28] MEDS ORDERED: C COMPLEX1000 M1 PO (13:10)
[2024-04-28] MEDS ORDERED: STIOLTO RESPIMAT4 G1 IH (13:11)
[2024-04-28] MEDS ORDERED: POTA20LUD PO (13:11)
[2024-04-28] MEDS ORDERED: Azithromycin 500 MG in NS 250 ML IV ONE (15:40)
[2024-04-28] MEDS ORDERED: MethylPREDNISolone Sod Succ 125 MG Vial IV ONE (15:40)
[2024-04-28] MEDS ORDERED: Acetaminophen 325 MG TABLET PO PRN (16:25)
[2024-04-28] MEDS ORDERED: Albuterol 2.5 MG/3 ML VIAL INH PRN (16:25)
[2024-04-28] MEDS ORDERED: FLU VACC TS2024-25(6MOS UP)/PF 45 MCG/0.5 ML SYRINGE IM SCH (16:25)
[2024-04-28] MEDS ORDERED: Ipratropium/Albuterol SulF 2.5-0.5MG/3 ML Amp INH SCH (16:25)
[2024-04-28 17:57] VITALS: BP 134/65
[2024-04-28] MEDS ORDERED: Amlodipine Bes2.5 MG PO (18:15)
[2024-04-28 19:32] VITALS: BP 117/61
--- NOTE | 2024-04-28 19:38 | NUR ---
ADMIT NOTE/SHIFT SUMMARY- PT ADMITTED THROUGH THE ED FOR ACUTE COPD EXACERBATION. 2 RN SKIN CHECK WAS COMPLETED, PT HAS NO VISIBLE WOUNDS OR KULKARNI ON HER SKIN THAT CAN BE SEEN AT THE TIME OF ADMISSION. PT DENIES ANY FALLS IN THE PAST 6 MONTHS. SHE HAS A Hx OF CVA WITH LEFT SIDED DEFICITE. SHE IS A 1PA WITH ALL TRANSFERS. BED ALARM SET FOR SAFETY. PT IN BED AT THE TIME OF BEDSIDE REPORT. IV SL, ADMISSION ASSESSMENT COMPLETED, CALL LIGHT IN REACH, NO S&S OF DISTRESS NOTED. ADMIT Hx NEEDS TO BE COMPLETED WELL THE ADMISSION MED REC.
[2024-04-28] MEDS ORDERED: NS 250 ML IV PRN (19:45)
[2024-04-28] MEDS ORDERED: Lactobacil 2-S.Thermo-Bifido 1 1 Cap PO SCH (21:00)
[2024-04-28] MEDS ORDERED: Apixaban 5 MG Tab PO SCH ×2 (21:00)
[2024-04-28] MEDS ORDERED: MethylPREDNISolone Sod Succ 125 MG Vial IV SCH ×2 (21:00)
[2024-04-28] MEDS ORDERED: GuaiFENesin 600 MG TabCR PO SCH (21:00)
[2024-04-28] MEDS ORDERED: Vitamin B Comple1 EA PO (21:29)
--- NOTE | 2024-04-29 01:27 | NUR ---
@2000 HEALTH HX AND MEDICATION RECONCILIATION COMPLETED BY THIS BLEACH ANALYST.
--- NOTE | 2024-04-29 03:51 | NUR ---
SHIFT SUMMARY PT IS A&O X4, [place]AC [place], COOPERATIVE WITH CARE. O2@ 2L VIA NASAL CANNULA. PT DENIES SOB AND PAIN, NO COUGH NOTED DURING THIS SHIFT. LS DIMINISHED PER AUSCULTATION. O2 SAT'S> 97%. DURING THE NIGHT HRS, PT REFUSES THE HOSPITAL C-PAP. PT REPORTS SHE DOES NOT USE A CPAP @HOME SETTING. NO ACUTE EVENTS/DISTRESS NOTED/REPORTED DURING THIS SHIFT. BED AT THE LOWEST POSITION, CALL LIGHT W/I REACH. PT IS ABLE TO MAKE HER NEEDS KNOWN.
[2024-04-29 04:05] VITALS: BP 153/80
[2024-04-29 05:48] LABS: BASOPHILS PERCENT AUTO 0 % (0-2); EOSINOPHILS PERCENT AUTO 0 % (0-6); Hematocrit 34.8 % (33.0-51.0); IMMATURE GRAN ABSOLUTE AUTO 0.03 K/mm3 (0.00-0.10); IMMATURE GRAN PERCENT AUTO 1 % (0-1); LYMPHOCYTES ABSOLUTE AUTO 0.44 K/mm3 (0.84-5.20); LYMPHOCYTES PERCENT AUTO 7 % (21-46); MONOCYTES ABSOLUTE AUTO 0.08 K/mm3 (0.16-1.47); MONOCYTES PERCENT AUTO 1 % (4-13); Mean Corpuscular HGB 28.3 pg (26.0-34.0); Mean Corpuscular HGB Conc 31.6 g/dL (31.5-36.5); Mean Corpuscular Volume 90 fL (80-100); Mean Platelet Volume 10.3 fL (9.1-12.4); NEUTROPHILS ABSOLUTE AUTO 5.94 K/mm3 (1.96-9.15); NEUTROPHILS PERCENT AUTO 92 % (41-73); Platelet Count 356 K/mm3 (150-400); RDW Standard Deviation 42.5 fL (35.1-46.3); Red Blood Cell Count 3.89 M/mm3 (3.80-5.20); White Blood Cell Count 6.49 K/mm3 (4.00-11.30)
[2024-04-29 06:18] LABS: Bun/Creatinine Ratio 35.2 (12.0-20.0); Calcium, Blood 9.8 mg/dL (8.5-10.1); Creatinine, Blood 0.34 mg/dL (0.40-1.00); Potassium, Blood 4.6 mmol/L (3.5-5.5)
[2024-04-29 07:29] VITALS: BP 132/87
[2024-04-29] MEDS ORDERED: Clopidogrel Bisulfate 75 MG Tab PO SCH (09:00)
[2024-04-29] MEDS ORDERED: Enoxaparin 40 MG/0.4 ML SYR SC SCH (09:00)
[2024-04-29] MEDS ORDERED: Furosemide 20 MG Tab PO SCH (09:00)
[2024-04-29] MEDS ORDERED: Losartan Potassium 50 MG Tab PO SCH (09:00)
[2024-04-29] MEDS ORDERED: Potassium Chloride 10 Meq Tablet SA PO SCH (09:00)
[2024-04-29] MEDS ORDERED: Atorvastatin 40 MG Tab PO SCH (09:00)
[2024-04-29] MEDS ORDERED: Azithromycin 250 MG Tab PO SCH (09:00)
[2024-04-29] MEDS ORDERED: AmLODIPine Besylate 5 MG Tab PO SCH (09:00)
[2024-04-29] MEDS ORDERED: Ascorbic Acid 500 MG Tab PO SCH (09:00)
[2024-04-29] MEDS ORDERED: AZIT250 PO (10:51)
[2024-04-29] MEDS ORDERED: GUAI600T33 PO (10:52)
[2024-04-29] MEDS ORDERED: Pulmicort Fle180 MCG INH (10:52)
[2024-04-29] MEDS ORDERED: PRED20 PO (10:55)
== END 2024-04-29 13:03 | disposition home or self-care (01) ==
LOC: ER 09:31 → MEDS 09:32
PROVIDERS: Student in an Organized Health Care Education/Training Program; ADMIT Internal Medicine
DX: J44.1 Chronic obstructive pulmonary disease with (acute) exacerbation (principal); I11.0 Hypertensive heart disease with heart failure; I50.22 Chronic systolic (congestive) heart failure; E78.5 Hyperlipidemia, unspecified; K21.9 Gastro-esophageal reflux disease without esophagitis; I48.20 Chronic atrial fibrillation, unspecified; Z86.73 Personal history of transient ischemic attack (TIA), and cerebral infarction without residual deficits; Z87.891 Personal history of nicotine dependence; Z66 Do not resuscitate; Z88.2 Allergy status to sulfonamides; Z79.01 Long term (current) use of anticoagulants; Z79.899 Other long term (current) drug therapy
CPT/HCPCS: 36415; 71046; 80048; 80053; 83880; 84484; 85025; 93005; 93010; 94640; 94644; 94645; 94660; 94664; 94760; 96365; 96375; 96376; 99285-25; A9270; G0378; J0456; J2919; J7050

== ENCOUNTER → 2024-09-24 | Outpatient (CLI) | payer OTHER ==
[~2024-09-24] MED LIST changes: +AZIT250 PO; +C COMPLEX1000 M1 PO; +GUAI600T33 PO; +POTA20LUD PO; +Pulmicort Fle180 MCG INH; +STIOLTO RESPIMAT4 G1 IH
[2024-09-24 17:32] LABS: BASOPHILS ABSOLUTE AUTO 0.05 K/mm3 (0.00-0.23); BASOPHILS PERCENT AUTO 1 % (0-2); EOSINOPHILS ABSOLUTE AUTO 0.09 K/mm3 (0.00-0.68); EOSINOPHILS PERCENT AUTO 1 % (0-6); Hematocrit 36.9 % (33.0-51.0); Hemoglobin 12.3 g/dL (11.5-16.0); IMMATURE GRAN ABSOLUTE AUTO 0.01 K/mm3 (0.00-0.10); IMMATURE GRAN PERCENT AUTO 0 % (0-1); LYMPHOCYTES PERCENT AUTO 20 % (21-46); MONOCYTES ABSOLUTE AUTO 0.49 K/mm3 (0.16-1.47); MONOCYTES PERCENT AUTO 8 % (4-13); Mean Corpuscular HGB 30.3 pg (26.0-34.0); Mean Corpuscular HGB Conc 33.3 g/dL (31.5-36.5); Mean Corpuscular Volume 91 fL (80-100); Mean Platelet Volume 11.1 fL (9.1-12.4); NEUTROPHILS ABSOLUTE AUTO 4.47 K/mm3 (1.96-9.15); NEUTROPHILS PERCENT AUTO 70 % (41-73); Platelet Count 255 K/mm3 (150-400); RDW Coefficient Variation 12.9 % (11.7-14.2); Red Blood Cell Count 4.06 M/mm3 (3.80-5.20); White Blood Cell Count 6.41 K/mm3 (4.00-11.30)
[2024-09-24 23:22] LABS: Alanine Aminotransfer (ALT/SGP 30 U/L (12-78); Albumin, Blood 3.5 g/dL (3.4-5.0); Alk Phos 65 U/L (50-136); Anion Gap 9 mmol/L (3-11); Aspartate Aminotrans (AST/SGOT 23 U/L (12-37); Bilirubin, Total 0.3 mg/dL (0.1-1.0); Blood Urea Nitrogen 7 mg/dL (8-24); CHOL/HDL RATIO 2.8; CO2, Blood 34 mmol/L (21-32); Chloride, Blood 98 mmol/L (98-108); Cholesterol 158 mg/dL (50-200); Globulin, Blood 3.5 g/dL (2.2-4.0); Glomerular Filtration Rate 91 (60-); Glucose, Blood 116 mg/dL (70-99); HDL Cholesterol 57 mg/dL (>39); LDL/HDL RATIO 1.4; Low Density Lipoprotein Chol 78 mg/dL (0-110); Potassium, Blood 3.7 mmol/L (3.5-5.5); Sodium, Blood 137 mmol/L (136-145); Triglycerides 116 mg/dL (30-160); Very Low Density Lipoprot Chol 23 mg/dL (6-32)
== END ==
LOC: LAB SHORT 11:16 → LAB 11:16
PROVIDERS: Nurse Practitioner Family
DX: I11.0 Hypertensive heart disease with heart failure (principal); I50.32 Chronic diastolic (congestive) heart failure; E87.6 Hypokalemia
CPT/HCPCS: 80053; 80061; 85025

== ENCOUNTER 2024-11-07 15:34 | Emergency (ER) | payer OTHER ==
[~2024-11-07] VITALS: Ht 170.2 cm; Wt 72.6 kg
[2024-11-07] MEDS ORDERED: Ondansetron HCl 2 MG / ML 2ML Vial IV ONE ×2 (17:25→18:40)
[2024-11-07 17:43] LABS: BASOPHILS ABSOLUTE AUTO 0.06 K/mm3 (0.00-0.23); BASOPHILS PERCENT AUTO 1 % (0-2); EOSINOPHILS ABSOLUTE AUTO 0.07 K/mm3 (0.00-0.68); EOSINOPHILS PERCENT AUTO 1 % (0-6); Hematocrit 40.2 % (33.0-51.0); IMMATURE GRAN ABSOLUTE AUTO 0.14 K/mm3 (0.00-0.10); IMMATURE GRAN PERCENT AUTO 2 % (0-1); LYMPHOCYTES ABSOLUTE AUTO 1.61 K/mm3 (0.84-5.20); LYMPHOCYTES PERCENT AUTO 21 % (21-46); MONOCYTES ABSOLUTE AUTO 0.46 K/mm3 (0.16-1.47); MONOCYTES PERCENT AUTO 6 % (4-13); Mean Corpuscular HGB 29.8 pg (26.0-34.0); Mean Corpuscular HGB Conc 32.3 g/dL (31.5-36.5); Mean Corpuscular Volume 92 fL (80-100); Mean Platelet Volume 10.9 fL (9.1-12.4); NEUTROPHILS ABSOLUTE AUTO 5.21 K/mm3 (1.96-9.15); NEUTROPHILS PERCENT AUTO 69 % (41-73); Platelet Count 256 K/mm3 (150-400); RDW Coefficient Variation 12.1 % (11.7-14.2); RDW Standard Deviation 41.9 fL (35.1-46.3); Red Blood Cell Count 4.36 M/mm3 (3.80-5.20); White Blood Cell Count 7.55 K/mm3 (4.00-11.30)
[2024-11-07 17:54] LABS: Albumin, Blood 3.8 g/dL (3.4-5.0); Albumin/Globulin Ratio 1.1 (0.8-1.8); Bilirubin, Total 0.4 mg/dL (0.1-1.0); Bun/Creatinine Ratio 21.1 (12.0-20.0); Creatinine, Blood 0.47 mg/dL (0.40-1.00); Globulin, Blood 3.5 g/dL (2.2-4.0); Potassium, Blood 3.4 mmol/L (3.5-5.5); Total Protein, Blood 7.3 g/dL (6.4-8.2)
[2024-11-07] MEDS ORDERED: Morphine Sulfate 4 MG/1 ML Injection IV ONE ×3 (18:40→23:05)
[2024-11-07 22:45] VITALS: BP 192/80
== END 2024-11-07 23:20 | disposition short-term general hospital (02) ==
LOC: ER 15:34
PROVIDERS: Emergency Medicine
DX: S32.019A Unspecified fracture of first lumbar vertebra, initial encounter for closed fracture (principal); S32.029A Unspecified fracture of second lumbar vertebra, initial encounter for closed fracture; S32.049A Unspecified fracture of fourth lumbar vertebra, initial encounter for closed fracture; R33.9 Retention of urine, unspecified; Z87.891 Personal history of nicotine dependence; J44.9 Chronic obstructive pulmonary disease, unspecified; I11.0 Hypertensive heart disease with heart failure; I50.20 Unspecified systolic (congestive) heart failure; E78.5 Hyperlipidemia, unspecified; K21.9 Gastro-esophageal reflux disease without esophagitis; W01.0XXA Fall on same level from slipping, tripping and stumbling without subsequent striking against object, initial encounter; Z86.73 Personal history of transient ischemic attack (TIA), and cerebral infarction without residual deficits; Z79.51 Long term (current) use of inhaled steroids; Z79.02 Long term (current) use of antithrombotics/antiplatelets; Z88.2 Allergy status to sulfonamides; Z88.8 Allergy status to other drugs, medicaments and biological substances
CPT/HCPCS: 51702; 51798; 70450; 72131; 80053; 85025; 93005; 93010; 96374; 96375; 96376; 99285-25; J2270; J2405

== ENCOUNTER 2024-12-28 09:25 | Observation (INO) | payer OTHER ==
[~2024-12-28] VITALS: Ht 162.6 cm; Wt 54.2 kg
[~2024-12-28 09:25] MED LIST changes: +LOSA50 PO
[2024-12-28 11:12] LABS: BASOPHILS ABSOLUTE AUTO 0.04 K/mm3 (0.00-0.23); BASOPHILS PERCENT AUTO 1 % (0-2); EOSINOPHILS ABSOLUTE AUTO 0.07 K/mm3 (0.00-0.68); EOSINOPHILS PERCENT AUTO 1 % (0-6); Hemoglobin 12.4 g/dL (11.5-16.0); IMMATURE GRAN ABSOLUTE AUTO 0.01 K/mm3 (0.00-0.10); IMMATURE GRAN PERCENT AUTO 0 % (0-1); LYMPHOCYTES ABSOLUTE AUTO 1.16 K/mm3 (0.84-5.20); LYMPHOCYTES PERCENT AUTO 20 % (21-46); MONOCYTES ABSOLUTE AUTO 0.43 K/mm3 (0.16-1.47); MONOCYTES PERCENT AUTO 7 % (4-13); Mean Corpuscular HGB 30.1 pg (26.0-34.0); Mean Corpuscular HGB Conc 32.6 g/dL (31.5-36.5); Mean Corpuscular Volume 92 fL (80-100); NEUTROPHILS ABSOLUTE AUTO 4.14 K/mm3 (1.96-9.15); NEUTROPHILS PERCENT AUTO 71 % (41-73); Platelet Count 230 K/mm3 (150-400); RDW Coefficient Variation 11.9 % (11.7-14.2); RDW Standard Deviation 40.6 fL (35.1-46.3); Red Blood Cell Count 4.12 M/mm3 (3.80-5.20); White Blood Cell Count 5.85 K/mm3 (4.00-11.30)
[2024-12-28 11:56] LABS: Albumin, Blood 3.6 g/dL (3.4-5.0); Bilirubin, Total 0.3 mg/dL (0.1-1.0); Bun/Creatinine Ratio 16.9 (12.0-20.0); Calcium, Blood 9.1 mg/dL (8.5-10.1); Creatinine, Blood 0.47 mg/dL (0.40-1.00); Globulin, Blood 3.6 g/dL (2.2-4.0); Potassium, Blood 3.3 mmol/L (3.5-5.5); Total Protein, Blood 7.2 g/dL (6.4-8.2)
[2024-12-28] MEDS ORDERED: FUROSEMIDE40 MG PO (12:42)
[2024-12-28] MEDS ORDERED: OXYC5 PO (12:43)
[2024-12-28] MEDS ORDERED: GABA100 PO (12:43)
[2024-12-28 14:25] LABS: Hematocrit 37.8 % (33.0-51.0); Hemoglobin 12.4 g/dL (11.5-16.0)
[2024-12-28 15:18] VITALS: BP 139/75
[2024-12-28] MEDS ORDERED: KLOR-CON 1010 ME9 PO (15:34)
[2024-12-28] MEDS ORDERED: ALBU2.5V5 INH (15:35)
[2024-12-28] MEDS ORDERED: MOME220I INH (15:36)
[2024-12-28] MEDS ORDERED: MIRALAX17 GM PO (15:39)
[2024-12-28] MEDS ORDERED: Albuterol 2.5 MG/3 ML VIAL INH PRN (15:50)
[2024-12-28] MEDS ORDERED: Tiotropium Bromide 2.5 MCG/ACT MIST INHAL (10 ACT/4 GM) INH SCH (15:50)
[2024-12-28] MEDS ORDERED: OxyCODONE HCL 5 MG TAB PO PRN (15:50)
[2024-12-28] MEDS ORDERED: Mometasone/Formoterol MDI 200/5 mcg 13 GM INH SCH (15:55)
--- NOTE | 2024-12-28 17:43 | NUR ---
ADMISSION SUMMARY PT ADMITTED TO UNIT AT APPROX 1450 FOR SUSPECTED GI BLEED. SURGICAL CONSULT CALLED IN BY ER DOC. AWAITING DR MITTAL TO COMPLETE CONSULT - PT NPO AT THIS TIME WITH LAST INTAKE BEING AT 0800 ON 12/28/24 PER PT. PT SBA TO BATHROOM DUE TO LEFT SIDED WEAKNESS FROM CVA BACK IN 2023. PT A/O. ON 2.5 L/MIN VIA NC AT BASELINE. VITALS WNL. PT DENIES PAIN. ADMISSION COMPLETED INCLUDING MED REC. PT ORIENTED TO ROOM AND CALL SYSTEM. PT HAS PERSONAL WALKER IN ROOM.
[2024-12-28 19:05] VITALS: BP 145/84
[2024-12-28 19:41] LABS: Hematocrit 38.6 % (33.0-51.0); Hemoglobin 12.7 g/dL (11.5-16.0)
[2024-12-28] MEDS ORDERED: Gabapentin 100 MG Cap PO SCH (21:00)
[2024-12-29 01:47] LABS: Hematocrit 37.4 % (33.0-51.0); Hemoglobin 12.1 g/dL (11.5-16.0)
--- NOTE | 2024-12-29 04:20 | NUR ---
SUMMARY: PT A/OX4, CALLS APPROPRIATELY TO SPECIFY NEEDS AND IS PLEASANT AND COOPERATIVE W/CARE. SHE'S UP W/1PA AND FWW W/L.SIDE DEFICIT NOTED FROM HX OF STROKE. LEG STRENGTH IS INTACT BUT ROM AND WEAKNESS OBSERVED TO L.ARM/HAND. SNACK WAS PROVIDED AT [facility] THEN SHE WAS MADE NPO FOR POSSIBLE SCOPE. CONSULT IS STILL PENDING. SHE REMAINS ON 2.5L O2 VIA NC PER BASELINE W/SPO2 WNL. NO ACUTE CHANGES, VSS/AFEBRILE. SHE'S DENIED PAIN/COMPLAINTS AND SLEPT MAJORITY OF NOCTE. WILL REPORT TO DAY RN.
[2024-12-29 04:21] VITALS: BP 141/71
[2024-12-29 07:32] VITALS: BP 134/72
[2024-12-29 08:20] LABS: Hemoglobin 12.2 g/dL (11.5-16.0)
[2024-12-29] MEDS ORDERED: AmLODIPine Besylate 5 MG Tab PO SCH (09:00)
[2024-12-29] MEDS ORDERED: Atorvastatin 40 MG Tab PO SCH (09:00)
[2024-12-29] MEDS ORDERED: Losartan Potassium 50 MG Tab PO SCH (09:00)
[2024-12-29] MEDS ORDERED: Furosemide 40 MG Tab PO SCH (09:00)
[2024-12-29] MEDS ORDERED: Empagliflozin 10 MG TAB PO SCH (09:00)
[2024-12-29] MEDS ORDERED: Potassium Chloride 10 Meq Tablet SA PO SCH (09:00)
[2024-12-29 09:27] LABS: Bun/Creatinine Ratio 31.2 (12.0-20.0); Creatinine, Blood 0.39 mg/dL (0.40-1.00); Potassium, Blood 3.3 mmol/L (3.5-5.5)
[2024-12-29] MEDS ORDERED: JARDIANCE10 MG PO (13:12)
--- NOTE | 2024-12-29 15:01 | NUR ---
DISCHARGE REVIEWED DISCHARGE INSTRUCTIONS W/PATIENT AND DAUGHTER, BOTH VERBALIZED UNDERSTANDING, RX FAXED TO [facility] ([facility]), IV REMOVED, ALL BELONGINGS SENT W/PATIENT. TRANSPORTED OUT VIA WHEELCHAIR BY SPEECH CORRECTION ASSISTANT TO DISCHARGE IN [employer] VEHICLE W/DIL @ 1400.
== END 2024-12-29 14:26 | disposition home or self-care (01) ==
LOC: ER 09:25 → MEDS 09:26 → ENPENDDIS 12-29 13:07 → MEDS 12-29 14:26
PROVIDERS: Family Medicine; Physician Assistant; ADMIT Student in an Organized Health Care Education/Training Program
DX: K92.2 Gastrointestinal hemorrhage, unspecified (principal); J44.9 Chronic obstructive pulmonary disease, unspecified; G89.29 Other chronic pain; I63.9 Cerebral infarction, unspecified; I11.0 Hypertensive heart disease with heart failure; I50.30 Unspecified diastolic (congestive) heart failure; I48.91 Unspecified atrial fibrillation; K21.9 Gastro-esophageal reflux disease without esophagitis; I73.9 Peripheral vascular disease, unspecified; E78.5 Hyperlipidemia, unspecified; Z66 Do not resuscitate; Z87.891 Personal history of nicotine dependence; Z88.2 Allergy status to sulfonamides; Z88.8 Allergy status to other drugs, medicaments and biological substances; Z95.0 Presence of cardiac pacemaker; Z95.1 Presence of aortocoronary bypass graft; Z99.81 Dependence on supplemental oxygen
CPT/HCPCS: 36415; 80048; 80053; 82272; 85014; 85018; 85025; 86850; 86900; 86901; 93005; 93010; 94640; 94664; 94760; 99285-25; A9270; G0378

== ENCOUNTER 2025-02-04 10:16 | Emergency (ER) | payer OTHER ==
[~2025-02-04] VITALS: Ht 162.6 cm; Wt 53.5 kg
[~2025-02-04 10:16] MED LIST changes: +ALBU2.5V5 INH; +FUROSEMIDE40 MG PO; +GABA100 PO; +KLOR-CON 1010 ME9 PO; +MOME220I INH; +OXYC5 PO
[2025-02-04 10:31] VITALS: BP 126/96
== END 2025-02-04 11:54 | disposition home or self-care (01) ==
LOC: ER 10:16
DX: L60.0 Ingrowing nail (principal); I11.0 Hypertensive heart disease with heart failure; J44.9 Chronic obstructive pulmonary disease, unspecified; K21.9 Gastro-esophageal reflux disease without esophagitis; I50.20 Unspecified systolic (congestive) heart failure; E78.5 Hyperlipidemia, unspecified; Z88.2 Allergy status to sulfonamides; Z79.899 Other long term (current) drug therapy; Z79.01 Long term (current) use of anticoagulants; Z87.891 Personal history of nicotine dependence; Z86.73 Personal history of transient ischemic attack (TIA), and cerebral infarction without residual deficits; Z95.0 Presence of cardiac pacemaker; Z59.89 Other problems related to housing and economic circumstances
CPT/HCPCS: 99283

== ENCOUNTER 2025-03-31 09:50 | Observation (INO) | payer OTHER ==
[2025-03-31] VITALS (12 sets, daily range): BP systolic 99–150; BP diastolic 60–87
[~2025-03-31] VITALS: Ht 162.6 cm; Wt 51.8 kg
[~2025-03-31 09:50] MED LIST changes: +ALBU90OI INH
[2025-03-31] MEDS ORDERED: NS 250 ML IV ONE (13:18)
[2025-03-31] MEDS ORDERED: Nitroglycerin 2 MG/20 ML BTL ONE (13:19)
[2025-03-31] MEDS ORDERED: Heparin Sodium 1000 Units/ML 10ML MDV ONE ×2 (13:19→13:45)
[2025-03-31] MEDS ORDERED: NS 1,000 ML IV ONE ×3 (13:19→13:45)
[2025-03-31] MEDS ORDERED: Midazolam HCl 1MG / ML 2ML Vial ONE (13:45)
[2025-03-31] MEDS ORDERED: FentaNYL Citrate 50 MCG/ML 2 ML Injection ONE (13:45)
[2025-03-31] MEDS ORDERED: HydrALAZINE HCl 20 MG / ML 1ML Vial ONE (14:01)
--- NOTE | 2025-03-31 16:03 | NUR ---
BASIC AND GENERAL DISCHARGE INSTRUCTIONS PRINTED FOR PCU, GIVEN TO KAVITA REAL.
--- NOTE | 2025-03-31 19:14 | NUR ---
PCU ARRIVAL/END OF SHIFT: ARRIVED TO UNIT AT 1725 FROM [facility]. A/O X4, ABLE TO COMMUNICATE NEEDS, PLEASANT AND COOPERATIVE WITH CARE, HX CVA W/LEFT SIDED DEFICITS. RIGHT FEMORAL SITE ACCESSED FOR REVASCULARIZATION, LEFT PEDAL PULSE FOUND AND MARKED USING DOPPLER, RIGHT PEDAL PULSE FAINT. REVERSE TRENDELENBERG ATTEMPTED FOR DINNER, RIGHT FEMORAL ACCESS SITE BEGAN TO OOZE, MANUAL PRESSURE APPLIED, VPACED AT 80, BP 150/79 (MAP: 97). LUNGS CTA, DIM THROUGHOUT, ON BASELINE 02 OF 2.5L VIA NC. MOBILIZES WITH WALKER AT BASELINE, CURRENTLY BEDREST AND FLAT. PUREWICK IN PLACE WITH LIGHT SUCTION, NO URINE OUTPUT THIS SHIFT, HYPOACTIVE BOWEL TONES, FULL UPPER AND LOWER DENTURES. ORIENTED TO CALL LIGHT, PATIENT DENIES NEEDS AT THIS TIME.
[2025-03-31] MEDS ORDERED: Albuterol 2.5 MG/3 ML VIAL INH PRN (19:25)
[2025-03-31] MEDS ORDERED: Albuterol HFA200 ACT/6.7 GM INH INH SCH (19:45)
[2025-03-31] MEDS ORDERED: Ipratropium/Albuterol SulF 2.5-0.5MG/3 ML Amp INH SCH (19:45)
[2025-03-31] MEDS ORDERED: NS 1,000 ML IV SCH (22:00)
[2025-04-01 03:30] VITALS: BP 138/75
[2025-04-01 04:39] LABS: BASOPHILS ABSOLUTE AUTO 0.04 K/mm3 (0.00-0.23); BASOPHILS PERCENT AUTO 0 % (0-2); EOSINOPHILS ABSOLUTE AUTO 0.01 K/mm3 (0.00-0.68); EOSINOPHILS PERCENT AUTO 0 % (0-6); Hematocrit 38.1 % (33.0-51.0); Hemoglobin 12.7 g/dL (11.5-16.0); IMMATURE GRAN ABSOLUTE AUTO 0.03 K/mm3 (0.00-0.10); IMMATURE GRAN PERCENT AUTO 0 % (0-1); LYMPHOCYTES ABSOLUTE AUTO 1.05 K/mm3 (0.84-5.20); LYMPHOCYTES PERCENT AUTO 10 % (21-46); MONOCYTES ABSOLUTE AUTO 0.95 K/mm3 (0.16-1.47); MONOCYTES PERCENT AUTO 9 % (4-13); Mean Corpuscular HGB Conc 33.3 g/dL (31.5-36.5); Mean Corpuscular Volume 89 fL (80-100); NEUTROPHILS ABSOLUTE AUTO 8.64 K/mm3 (1.96-9.15); NEUTROPHILS PERCENT AUTO 81 % (41-73); NRBC ABSOLUTE 0.00 K/mm3 (0.00-0.02); NRBC Auto 0.0 /100 WBC (0.0-0.2); Platelet Count 214 K/mm3 (150-400); RDW Coefficient Variation 13.2 % (11.7-14.2); RDW Standard Deviation 43.1 fL (35.1-46.3)
[2025-04-01] MEDS ORDERED: Ipratropium/Albuterol SulF 2.5-0.5MG/3 ML Amp INH SCH (04:40)
[2025-04-01] MEDS ORDERED: Albuterol HFA200 ACT/6.7 GM INH INH PRN (04:40)
[2025-04-01 04:55] LABS: Prothrombin Time Results 11.2 Sec (9.7-11.5)
[2025-04-01 05:02] LABS: Alanine Aminotransfer (ALT/SGP 21.0 U/L (12-78); Albumin, Blood 3.3 g/dL (3.4-5.0); Albumin/Globulin Ratio 0.9 (0.8-1.8); Anion Gap 8.0 mmol/L (3-11); Aspartate Aminotrans (AST/SGOT 27.0 U/L (12-37); Bilirubin, Total 0.5 mg/dL (0.1-1.0); Blood Urea Nitrogen 12.0 mg/dL (8-24); CO2, Blood 31.0 mmol/L (21-32); Calcium, Blood 8.6 mg/dL (8.5-10.1); Chloride, Blood 100.0 mmol/L (98-108); Creatinine, Blood 0.41 mg/dL (0.40-1.00); Globulin, Blood 3.6 g/dL (2.2-4.0); Glucose, Blood 86.0 mg/dL (70-99); Potassium, Blood 3.2 mmol/L (3.5-5.5); Sodium, Blood 136.0 mmol/L (136-145); Total Protein, Blood 6.9 g/dL (6.4-8.2)
--- NOTE | 2025-04-01 05:49 | NUR ---
SHIFT SUMMARY THIS RN ASSUMED CARE OF PATIENT AT 1900. BEDSIDE SHIFT REPORT DONE WITH PREVIOUS RN S. PT WITH OOZING AT RT FEMORAL SITE. PREVIOUS RN HELD PRESSURE. SAND BAG PLACED ON SITE AND PT REMAINED FLAT UNTIL 2099. DRESSING CHANGED AT 2099. NO FURTHER BLEEDING NOTED. PT WAS ABLE TO SLOWLY SIT HOB UP WITH MINIMAL OOZING TO SITE. LEFT PEDAL/TIBIAL PULSES MARKED ON FOOT. PT A&O X4. ABLE TO MAKE NEEDS KNOWN. BP STABLE. VPACED WITH HR 80S. ON 2L VIA NC, WHICH IS BASELINE, SPO2 >92%. HOSPITALIST TO BEDSIDE TO DISCUSS PLAN FOR DISCHARGE IN THE MORNING AND NEW MEDICATION, PLAVIX. PT VERBALIZED UNDERSTANDING. PT REFUSING PUREWICK, STATING THAT IT HURTS . NS INFUSING PER EMAR. BED IN LOWEST POSITION AND CALL LIGHT WITHIN REACH. THIS RN WILL REPORT TO ONCOMING DAYSHIFT RN.
[2025-04-01 08:01] VITALS: BP 132/70
--- NOTE | 2025-04-01 08:45 | NUR ---
MD ROUNDING md short in room assessing patient and going over plan of care with patient that if IR is okay with going home that patient can go home this afternoon.
--- NOTE | 2025-04-01 09:30 | NUR ---
am note this rn assumed care at 0700. vital signs stable. tele v paced 80. patient is alert and oriented x4. neuro is intact. perrla. patient denies pain, chest pain/pressure or shortness of breath. 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 patient right femoral site is soft nontender and no hematoma. see shift assessment for further detials. see previous note for further detials about plan and conversation with
[2025-04-01 11:28] VITALS: BP 102/55
--- NOTE | 2025-04-01 11:34 | NUR ---
Upon receiving a referral for spiritual care, I visited the patient. She tells me about the excellence of the surgical team, her doctor and expresses saleem that the procedure is behind her. She talks about her helathy support system and her [employer] ashtyn. I provided therapeutic listening and prayer/blessing and the patient voiced appreciation for the visit and the prayer.
[2025-04-01] MEDS ORDERED: CLOP75 PO (11:57)
--- NOTE | 2025-04-01 12:40 | NUR ---
update md polacno in to see patient and went over medications to take at discharge and to follow up within two weeks. patient has appointment made already and informed patient and family.
--- NOTE | 2025-04-01 13:17 | NUR ---
discharge summary this rn went over discharge instructions with pateient and patient daughter in law. patient and aughter in law verbalized understanding. patien left with al belongigns and in no distress
== END 2025-04-01 13:10 | disposition home health service (06) ==
LOC: MHTC 09:50 → PCU 17:40 → MHTC 22:39 → PCU 22:39
PROVIDERS: Student in an Organized Health Care Education/Training Program; ADMIT Student in an Organized Health Care Education/Training Program
DX: I73.9 Peripheral vascular disease, unspecified (principal); L97.529 Non-pressure chronic ulcer of other part of left foot with unspecified severity; I11.0 Hypertensive heart disease with heart failure; I50.43 Acute on chronic combined systolic (congestive) and diastolic (congestive) heart failure; E78.5 Hyperlipidemia, unspecified; I48.91 Unspecified atrial fibrillation; J44.9 Chronic obstructive pulmonary disease, unspecified; Z66 Do not resuscitate; Z79.01 Long term (current) use of anticoagulants; Z88.8 Allergy status to other drugs, medicaments and biological substances; Z88.2 Allergy status to sulfonamides; Z91.048 Other nonmedicinal substance allergy status; Z79.899 Other long term (current) drug therapy; Z86.73 Personal history of transient ischemic attack (TIA), and cerebral infarction without residual deficits
CPT/HCPCS: 36415; 76937; 80053; 85025; 85347; 85610; 94640; 94664; A9270; C1725; C1753; C1760; C1769; C1874; C1887; C1894; C2623; J0360; J1644; J2250; J3010; J7030; J7050; Q9967

== ENCOUNTER 2025-06-25 08:00 | Emergency (ER) | payer OTHER ==
[~2025-06-25] VITALS: Ht 165.1 cm; Wt 52.2 kg
[2025-06-25 10:35] LABS: BASOPHILS ABSOLUTE AUTO 0.05 K/mm3 (0.00-0.23); BASOPHILS PERCENT AUTO 1 % (0-2); EOSINOPHILS ABSOLUTE AUTO 0.04 K/mm3 (0.00-0.68); EOSINOPHILS PERCENT AUTO 1 % (0-6); Hematocrit 40.1 % (33.0-51.0); Hemoglobin 12.9 g/dL (11.5-16.0); IMMATURE GRAN ABSOLUTE AUTO 0.01 K/mm3 (0.00-0.10); IMMATURE GRAN PERCENT AUTO 0 % (0-1); LYMPHOCYTES ABSOLUTE AUTO 1.13 K/mm3 (0.84-5.20); LYMPHOCYTES PERCENT AUTO 19 % (21-46); MONOCYTES ABSOLUTE AUTO 0.42 K/mm3 (0.16-1.47); MONOCYTES PERCENT AUTO 7 % (4-13); Mean Corpuscular HGB Conc 32.2 g/dL (31.5-36.5); Mean Corpuscular Volume 94 fL (80-100); NEUTROPHILS ABSOLUTE AUTO 4.45 K/mm3 (1.96-9.15); NEUTROPHILS PERCENT AUTO 73 % (41-73); NRBC ABSOLUTE 0.00 K/mm3 (0.00-0.02); NRBC Auto 0.0 /100 WBC (0.0-0.2); Platelet Count 213 K/mm3 (150-400); RDW Coefficient Variation 13.6 % (11.7-14.2); RDW Standard Deviation 46.7 fL (35.1-46.3)
[2025-06-25 11:20] LABS: Prothrombin Time Results 11.4 Sec (9.7-11.5)
[2025-06-25] MEDS ORDERED: Tranexamic Acid 1000 MG/10 ML 10ML Vial (SDV) TOP ONE (11:40)
[2025-06-25] MEDS ORDERED: Tranexamic Acid 100 ML IV ONE (11:40)
[2025-06-25 13:30] VITALS: BP 138/64
== END 2025-06-25 13:55 | disposition home or self-care (01) ==
LOC: ER 08:00
PROVIDERS: Student in an Organized Health Care Education/Training Program
DX: L76.22 Postprocedural hemorrhage of skin and subcutaneous tissue following other procedure (principal); I11.0 Hypertensive heart disease with heart failure; I50.20 Unspecified systolic (congestive) heart failure; K21.9 Gastro-esophageal reflux disease without esophagitis; E78.5 Hyperlipidemia, unspecified; J44.9 Chronic obstructive pulmonary disease, unspecified; Z86.73 Personal history of transient ischemic attack (TIA), and cerebral infarction without residual deficits; Z87.891 Personal history of nicotine dependence; Z79.899 Other long term (current) drug therapy; Z79.02 Long term (current) use of antithrombotics/antiplatelets; Z88.2 Allergy status to sulfonamides
CPT/HCPCS: 85025; 85610; 85730; 96374; 99283-25

== ENCOUNTER 2025-06-25 21:08 | Emergency (ER) | payer OTHER ==
[~2025-06-25] VITALS: Ht 162.6 cm; Wt 52.6 kg
[2025-06-26 01:43] VITALS: BP 145/72
== END 2025-06-26 01:34 | disposition home or self-care (01) ==
LOC: ER 21:08
DX: L76.21 Postprocedural hemorrhage of skin and subcutaneous tissue following a dermatologic procedure (principal); J44.9 Chronic obstructive pulmonary disease, unspecified; I48.91 Unspecified atrial fibrillation; I11.0 Hypertensive heart disease with heart failure; I50.20 Unspecified systolic (congestive) heart failure; K21.9 Gastro-esophageal reflux disease without esophagitis; E78.5 Hyperlipidemia, unspecified; Z86.73 Personal history of transient ischemic attack (TIA), and cerebral infarction without residual deficits; Z99.81 Dependence on supplemental oxygen; Z95.1 Presence of aortocoronary bypass graft; Z95.0 Presence of cardiac pacemaker; Z87.891 Personal history of nicotine dependence; Z88.2 Allergy status to sulfonamides; Z91.09 Other allergy status, other than to drugs and biological substances; Z79.01 Long term (current) use of anticoagulants; Z79.84 Long term (current) use of oral hypoglycemic drugs; Z79.02 Long term (current) use of antithrombotics/antiplatelets; Z79.899 Other long term (current) drug therapy; Z59.89 Other problems related to housing and economic circumstances
CPT/HCPCS: 12002; 99282-25